=== PATIENT | male | born 1960 | race Caucasian/White ===

== ENCOUNTER 2016-06-06 09:37 | Emergency (ER) | payer MEDICARE, OTHER ==
[~2016-06-06 09:37] MED LIST: /ATOR40TA OR; ASPI325T OR; BYSTOLIC PO; COENCAP PO; SAPHRIS PO; TRAZ50TA OR; [UNRECOGNIZED DRUG - OTHER] PO
--- NOTE | 2016-06-06 11:01 | REP ---
CT Head without contrast HISTORY: Visual loss COMPARISON: None There is no intraparenchymal hemorrhage, acute infarct, mass or midline shift. The ventricular system is normal in appearance. There is no extra cerebral collection. There is no fracture. The visualized sinuses are clear. IMPRESSION: There is no intracranial lesion. Signed by Luis Lange MD 06/06/2016 10:52 A
[2016-06-06 11:21] LABS: BASO % 0.3 % (0.0-1.0); EOS # 0.1 K/mm3 (0.0-0.50); EOS % 1.2 % (0.0-3.0); LARGE UNSTAINED CELL # 0.2 K/mm3 (0.0-0.4); LARGE UNSTAINED CELL % 2.3 % (0.0-4.0); LYMPH # 1.3 K/mm3 (1.5-4.5); LYMPH % 15.4 % (24.0-44.0); MEAN CORPUSCULAR HEMOGLOBIN 27.2 pg (27.0-33.0); MEAN CORPUSCULAR HGB CONC 32.7 g/dl (32.0-36.5); MEAN CORPUSCULAR VOLUME 83.1 fl (80.0-96.0); MONO # 0.5 K/mm3 (0.0-0.8); MONO % 5.9 % (0.0-5.0); NEUTROPHILS # 6.4 K/mm3 (1.8-7.7); PLATELET COUNT, AUTOMATED 303 k/mm3 (150-450); RED CELL DISTRIBUTION WIDTH 13.7 % (11.5-14.5); WHITE BLOOD COUNT 8.5 K/mm3 (4.0-10.0)
[2016-06-06 11:27] LABS: INR 1.01
[2016-06-06 11:41] LABS: ANION GAP 7 MEQ/L (8-16); BLOOD UREA NITROGEN 11 MG/DL (7-18); CALCIUM LEVEL 8.9 MG/DL (8.5-10.1); CARBON DIOXIDE LEVEL 32 MEQ/L (21-32); CHLORIDE LEVEL 106 MEQ/L (98-107); CREATININE FOR GFR 0.97 MG/DL (0.70-1.30); GLOMERULAR FILTRATION RATE > 60.0 (>56); GLUCOSE, FASTING 103 MG/DL (70-105); SODIUM LEVEL 145 MEQ/L (136-145)
--- NOTE | 2016-06-06 12:55 | EDDOCDS ---
Nurse's Notes [facility] Name: Cory oMss Age: 55 yrs Sex: Male : 1960 Arrival Date: 06/06/2016 Time: 09:37 Bed 15 Private MD: Francheska Sandy E Diagnosis: Transient visual loss-not visual loss but visual change - transient blurring of vision Presentation: 06/06 09:44 Presenting complaint: EMS states: while eating breakfast had an aura and visual hs1 changes. FS 129. Pt concerned with signs of stroke. Pt has no history of trauma and is on Eliquis. Pt walked to ambulance and EMS states that he has no neuro deficits. The last date and time the patient was known to be well was was at 07:00 on June 06, 2016. No acute neurological deficit is noted. The patients blood glucose was checked before arriving to the hospital and was found to be normal. Adult Sepsis Screening: The patient does not have new or worsening altered mentation. Patient's respiratory rate is less than 22. Systolic blood pressure is greater than 100. Patient has a qSOFA score of 0- Negative Sepsis Screen. Suicide/Homicide risk assessment- the patient denies having any suicidal and/or homicidal ideations and does not present with any other emotional, behavioral or mental health complaints. 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 Transition of care: patient was not received from another setting of care. 09:44 Acuity: SELENA Level 3 hs1 09:44 Method Of Arrival: Ambulance hs1 Triage Assessment: 09:48 The onset of the patients symptoms was less than three hours ago. General: Appears in hs1 no apparent distress, comfortable, Behavior is cooperative, Pt requests to use restroom and was handed urinal. Pt refused and got up off stretcher and walked to restroom carrying urinal. . Pain: Denies pain. HIV screening NA for this visit Offered previously. Neurological: Level of Consciousness is awake, alert, obeys commands, Reports no additional symptoms. Historical: - Allergies: IV Dye; PENICILLINS; - Home Meds: 1. Bystolic 5 mg oral tab 1 tab once daily 2. eplerenone 25 mg oral tab 1 tab once daily 3. potassium chloride 10 mEq Oral cpER 1 cap once daily 4. CoQ-10 100 mg oral cap 200 mg daily 5. Eliquis 5 mg oral tab 1 tab 2 times per day 6. metformin 1,000 mg Oral tab 1 tab 2 times per day 7. aspirin 325 mg Oral tab 1 tab as needed 8. gabapentin 300 mg Oral tab 600 mg nightly 9. lamotrigine 25 mg Oral tab 1 tabs 2 times per day 10. trazodone 100 mg Oral tab 2 tabs nightly 11. topiramate 50 mg oral cp24 1 cap twice a day 12. prazosin 1 mg Oral cap nightly - PMHx: Atrial Fib; Chronic Low Back Pain; Diabetes - NIDDM: controlled; Hypertension; - PSHx: right lobectomy; Appendectomy; - Social history: Smoking status: Patient states former smoker of tobacco. No barriers to communication noted, The patient speaks fluent Thai, Speaks appropriately for age. - Family history: Not pertinent. - : The pt / caregiver states he / she is on anticoagulants: Eliquis Home medication list is obtained from the patient. - Exposure Risk Screening:: None identified. Screenin:02 Screening information is obtained from the patient. Fall risk: No risks identified. hs1 Assistance ADL's: requires no assistance with activities of daily living. Abuse/DV Screen: The patient / caregiver reports he/she is: not in a situation that causes fear, pain or injury. Nutritional screening: No deficits noted. Advance Directives: Currently, there is no health care proxy. There is no active DNR order. home support is adequate. Assessment: 10:30 General: Appears in no apparent distress, comfortable, Behavior is appropriate for age, hs1 cooperative. Pain: Denies pain. Neurological: No deficits noted. Cardiovascular: Rhythm is regular Chest pain is denied. Respiratory: Airway is patent Respiratory effort is even, unlabored. Derm: Skin is pink, warm & dry. normal. 11:15 Reassessment: Patient appears in no apparent distress at this time. Patient denies pain hs1 at this time. General: Appears in no apparent distress, comfortable, Behavior is appropriate for age, cooperative. Pain: Denies pain. 12:25 General: Appears in no apparent distress, comfortable, Behavior is appropriate for age, hs1 cooperative. Pain: Denies pain. Neurological: Level of Consciousness is awake, alert, obeys commands, Oriented to person, place, time, Medicine Teacher are equal bilaterally Moves all extremities. Gait is steady, Speech is normal, Pupils are PERRLA. Cardiovascular: Rhythm is sinus rhythm No ectopy. Respiratory: Airway is patent Respiratory effort is even, unlabored. GI: No deficits noted. Derm: Skin is pink, warm & dry. normal. 12:52 Reassessment: Patient appears in no apparent distress at this time. Patient denies pain hs1 at this time. Patient states symptoms have improved. Pt agreeable to discharge. . Vital Signs: 09:56 BP 156 / 72; Pulse 81; Resp 20; Temp 97.6(O); Pulse Ox 98% on R/A; Weight 138.8 kg; jml1 Height 6 ft. 0 in. (182.88 cm); Pain 0/10; 12:53 BP 137 / 62; Pulse 71; Resp 18; Temp 98.0; Pulse Ox 96% ; Pain 0/10; hs1 09:56 Body Mass Index 41.50 (138.80 kg, 182.88 cm) [facility] Vitals: 10:03 Glucose Measurement D-stick done by EMS. Log In Time N/A - ambulance arrival. hs1 ED Course: 09:38 Patient visited by Cecille Woods, Chief Vendor Quality. lbd 09:38 Patient moved to Waiting lbd 09:39 Francheska Sandy is Private Physician. lbd 09:39 Patient moved to 15 lbd 09:47 Triage Initiated hs1 09:56 Patient visited by Arsen Tucker. jml1 10:03 The patient / caregiver is instructed regarding the plan of care and ED course. hs1 10:03 Maintain field IV. Gauge & site: 18 gauge in left AC. hs1 10:14 Regina Blake MD is Attending Physician. sd1 10:15 Patient visited by Regina Blake MD. sd1 10:51 Patient visited by Arsen Tucker. jml1 10:51 EKG done. (by ED staff). Reviewed by Regina Blake MD. jml1 11:10 CT Head Without Contrast Returned. EDMS 11:14 MED Profile Sent. hs1 11:14 CBC with Diff Sent. hs1 11:14 PT/INR Sent. hs1 11:27 Patient visited by Mayra Fuller RN. hs1 11:53 Patient visited by Johana Hernandes PCA. jlf 12:25 Patient visited by Johana Hernandes PCA. [facility] 12:32 Francheska Sandy is Referral Physician. sd1 12:52 Discontinued IV lock intact, bleeding controlled, pressure dressing applied, No hs1 redness/swelling at site. No procedures done that require assistance. Order Results: Lab Order: PT/INR; SPEC'M 06/06/16 11:13 Test: PROTHROMBIN TIME; Value: 13.4; Range: 12.3-14.5; Units: SECONDS; Status: F Test: INR; Value: 1.01; Status: F Test Note: ; THERAPUTIC HUMAN INR VALUES INDICATIONS NORMAL RANGES PROPHYLAXIS/TREATMENT OF: VENOUS THROMBOSIS 2.0-3.0 PULMONARY EMBOLISM 2.0-3.0 PREVENTION OF SYSTEMIC EMBOLISM FROM: TISSUE HEART VALVES 2.0-3.0 ACUTE MYOCARDIAL INFARCTION 2.0-3.0 VALVULAR HEART DISEASE 2.0-3.0 ATRIAL FIBRILLATION 2.0-3.0 MECHANICAL VALVES(HIGH RISK) 2.5-3.5 RECURRENT MYOCARDIAL INFARCTION 2.5-3.5 Lab Order: CBC with Diff; SPEC'M 06/06/16 11:13 Test: WHITE BLOOD COUNT; Value: 8.5; Range: 4.0-10.0; Units: K/mm3; Status: F Test: RED BLOOD COUNT; Value: 4.91; Range: 4.30-6.10; Units: M/mm3; Status: F Test: HEMOGLOBIN; Value: 13.3; Range: 14.0-18.0; Abnormal: Below low normal; Units: g/dl; Status: F Test: HEMATOCRIT; Value: 40.8; Range: 42.0-52.0; Abnormal: Below low normal; Units: %; Status: F Test: MEAN CORPUSCULAR VOLUME; Value: 83.1; Range: 80.0-96.0; Units: fl; Status: F Test: MEAN CORPUSCULAR HEMOGLOBIN; Value: 27.2; Range: 27.0-33.0; Units: pg; Status: F Test: MEAN CORPUSCULAR HGB CONC; Value: 32.7; Range: 32.0-36.5; Units: g/dl; Status: F Test: RED CELL DISTRIBUTION WIDTH; Value: 13.7; Range: 11.5-14.5; Units: %; Status: F Test: PLATELET COUNT, AUTOMATED; Value: 303; Range: 150-450; Units: k/mm3; Status: F Test: NEUTROPHILS %; Value: 75.0; Range: 36.0-66.0; Abnormal: Above high normal; Units: %; Status: F Test: LYMPH %; Value: 15.4; Range: 24.0-44.0; Abnormal: Below low normal; Units: %; Status: F Test: MONO %; Value: 5.9; Range: 0.0-5.0; Abnormal: Above high normal; Units: %; Status: F Test: EOS %; Value: 1.2; Range: 0.0-3.0; Units: %; Status: F Test: BASO %; Value: 0.3; Range: 0.0-1.0; Units: %; Status: F Test: LARGE UNSTAINED CELL %; Value: 2.3; Range: 0.0-4.0; Units: %; Status: F Test: NEUTROPHILS #; Value: 6.4; Range: 1.8-7.7; Units: K/mm3; Status: F Test: LYMPH #; Value: 1.3; Range: 1.5-4.5; Abnormal: Below low normal; Units: K/mm3; Status: F Test: MONO #; Value: 0.5; Range: 0.0-0.8; Units: K/mm3; Status: F Test: EOS #; Value: 0.1; Range: 0.0-0.50; Units: K/mm3; Status: F Test: BASO #; Value: 0.0; Range: 0.0-0.2; Units: K/mm3; Status: F Test: LARGE UNSTAINED CELL #; Value: 0.2; Range: 0.0-0.4; Units: K/mm3; Status: F Lab Order: MED Profile; SPEC'M 06/06/16 11:13 Test: GLUCOSE, FASTING; Value: 103; Range: 70-105; Units: MG/DL; Status: F Test: BLOOD UREA NITROGEN; Value: 11; Range: 7-18; Units: MG/DL; Status: F Test: CREATININE FOR GFR; Value: 0.97; Range: 0.70-1.30; Units: MG/DL; Status: F Test: GLOMERULAR FILTRATION RATE; Value: > 60.0; Range: >56; Status: F Test: SODIUM LEVEL; Value: 145; Range: 136-145; Units: MEQ/L; Status: F Test: POTASSIUM SERUM; Value: 4.0; Range: 3.5-5.1; Units: MEQ/L; Status: F Test: CHLORIDE LEVEL; Value: 106; Range: 98-107; Units: MEQ/L; Status: F Test: CARBON DIOXIDE LEVEL; Value: 32; Range: 21-32; Units: MEQ/L; Status: F Test: ANION GAP; Value: 7; Range: 8-16; Abnormal: Below low normal; Units: MEQ/L; Status: F Test: CALCIUM LEVEL; Value: 8.9; Range: 8.5-10.1; Units: MG/DL; Status: F Test Note: ; Units are mL/min/1.73 m2 Chronic Kidney Disease Staging per NKF: Stage I & II GFR >=60 Normal to Mildly Decreased Stage III GFR 30-59 Moderately Decreased Stage IV GFR 15-29 Severely Decreased Stage V GFR <15 Very Little GFR Left ESRD GFR <15 on FILLER SPREADER Radiology Order: CT Head Without Contrast Test: CT Head Without Contrast REASON FOR EXAMINATION: vision loss; CT Head without contrast; ; HISTORY: Visual loss; ; COMPARISON: None; ; There is no intraparenchymal hemorrhage, acute infarct, mass or midline shift.; The ventricular system is normal in appearance. There is no extra cerebral; collection. There is no fracture. The visualized sinuses are clear.; ; IMPRESSION: There is no intracranial lesion.; ; ; ; ; Signed by; Luis Lange MD 06/06/2016 10:52 A; Outcome: 12:26 CT Study completed. hs1 12:34 Discharge ordered by Provider. sd1 12:53 Discharge Assessment: Patient awake, alert and oriented x 3. No cognitive and/or hs1 functional deficits noted. Patient verbalized understanding of disposition instructions. patient administered narcotics - no. The following High Risk Discharge criteria are identified: None. Discharged to home ambulatory. Condition: stable. Discharge instructions given to patient, Instructed on discharge instructions, follow up and referral plans. medication usage, Demonstrated understanding of instructions, medications, Pt was receptive of discharge instructions/ teaching. Property sent home with patient. 12:54 Patient left the ED. hs1 Signatures: Dispatcher [employer] EDMS Regina Blake MD MD sd1 Cecille Woods, Chief Vendor Quality Unit lbd Mayra Fuller RN RN hs1 Arsen Tucker jml1 Johana Hernandes PCA RESIDENT BUYER [facility] MTDD
--- NOTE | 2016-06-06 12:55 | EDDOCDS ---
Physician Documentation [facility] Name: Cory Moss Age: 55 yrs Sex: Male : 1960 Arrival Date: 06/06/2016 Time: 09:37 Bed 15 Private MD: Francheska Sandy E Disposition: 06/06/16 12:34 Discharged to Home/Self Care. Impression: Transient visual loss - not visual loss but visual change - transient blurring of vision. - Condition is Stable. - Discharge Instructions: Eye - Blurred Vision. - Medication Reconciliation, Local Pharmacy Hours form. - Follow up: Francheska Sandy; When: 1 - 2 days. - Problem is new. - Symptoms are resolved. Historical: - Allergies: IV Dye; PENICILLINS; - Home Meds: 1. Bystolic 5 mg oral tab 1 tab once daily 2. eplerenone 25 mg oral tab 1 tab once daily 3. potassium chloride 10 mEq Oral cpER 1 cap once daily 4. CoQ-10 100 mg oral cap 200 mg daily 5. Eliquis 5 mg oral tab 1 tab 2 times per day 6. metformin 1,000 mg Oral tab 1 tab 2 times per day 7. aspirin 325 mg Oral tab 1 tab as needed 8. gabapentin 300 mg Oral tab 600 mg nightly 9. lamotrigine 25 mg Oral tab 1 tabs 2 times per day 10. trazodone 100 mg Oral tab 2 tabs nightly 11. topiramate 50 mg oral cp24 1 cap twice a day 12. prazosin 1 mg Oral cap nightly - PMHx: Atrial Fib; Chronic Low Back Pain; Diabetes - NIDDM: controlled; Hypertension; - PSHx: right lobectomy; Appendectomy; - Social history: Smoking status: Patient states former smoker of tobacco. No barriers to communication noted, The patient speaks fluent Romanian, Speaks appropriately for age. - Family history: Not pertinent. - : The pt / caregiver states he / she is on anticoagulants: Eliquis Home medication list is obtained from the patient. - Exposure Risk Screening:: None identified. Vital Signs: 06/06 09:56 BP 156 / 72; Pulse 81; Resp 20; Temp 97.6(O); Pulse Ox 98% on R/A; Weight 138.8 kg / jml1 306 lbs; Height 6 ft. 0 in. (182.88 cm); Pain 0/10; 12:53 BP 137 / 62; Pulse 71; Resp 18; Temp 98.0; Pulse Ox 96% ; Pain 0/10; hs1 09:56 Body Mass Index 41.50 (138.80 kg, 182.88 cm) jml1 MDM: 10:25 IV Saline Lock ordered. sd1 10:25 CT Head Without Contrast Ordered. EDMS 10:25 PT/INR Ordered. EDMS 10:25 CBC with Diff Ordered. EDMS 10:25 MED Profile Ordered. EDMS 10:26 ECG WITH READING ER PHYS+CARDIAG ordered. EDMS 11:47 MRI Screening Tool - Place on chart, inform RN ordered. sd1 11:47 -MRA-Brain without contrast Ordered. EDMS 11:48 CBC with Diff Reviewed. sd1 11:48 MED Profile Reviewed. sd1 11:48 PT/INR Reviewed. sd1 11:48 CT Head Without Contrast Reviewed. sd1 11:48 -MRI-Brain without Ordered. EDMS 12:01 MRI Screening Tool - Place on chart, inform RN complete. lbd 12:46 Financial registration complete. mm15 Signatures: Dispatcher [employer] EDMS Regina Blake MD MD sd1 Cecille Woods, Candle Molder Unit lbd Mayra Fuller, RN RN hs1 Sylvia Deras mm15 MTDD
--- NOTE | 2016-06-06 20:00 | ECGEPIP ---
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
--- NOTE | 2016-06-08 13:55 | EDDOCDS ---
Physician Documentation [facility] Name: Cory Moss Age: 55 yrs Sex: Male : 1960 Arrival Date: 06/06/2016 Time: 09:37 Bed 15 Private MD: Francheska Sandy E Disposition: 06/06/16 12:34 Discharged to Home/Self Care. Impression: Transient visual loss - not visual loss but visual change - transient blurring of vision. - Condition is Stable. - Discharge Instructions: Eye - Blurred Vision. - Medication Reconciliation, Local Pharmacy Hours form. - Follow up: Francheska Sandy; When: 1 - 2 days. - Problem is new. - Symptoms are resolved. Historical: - Allergies: IV Dye; PENICILLINS; - Home Meds: 1. Bystolic 5 mg oral tab 1 tab once daily 2. eplerenone 25 mg oral tab 1 tab once daily 3. potassium chloride 10 mEq Oral cpER 1 cap once daily 4. CoQ-10 100 mg oral cap 200 mg daily 5. Eliquis 5 mg oral tab 1 tab 2 times per day 6. metformin 1,000 mg Oral tab 1 tab 2 times per day 7. aspirin 325 mg Oral tab 1 tab as needed 8. gabapentin 300 mg Oral tab 600 mg nightly 9. lamotrigine 25 mg Oral tab 1 tabs 2 times per day 10. trazodone 100 mg Oral tab 2 tabs nightly 11. topiramate 50 mg oral cp24 1 cap twice a day 12. prazosin 1 mg Oral cap nightly - PMHx: Atrial Fib; Chronic Low Back Pain; Diabetes - NIDDM: controlled; Hypertension; - PSHx: right lobectomy; Appendectomy; - Social history: Smoking status: Patient states former smoker of tobacco. No barriers to communication noted, The patient speaks fluent Yi, Speaks appropriately for age. - Family history: Not pertinent. - : The pt / caregiver states he / she is on anticoagulants: Eliquis Home medication list is obtained from the patient. - Exposure Risk Screening:: None identified. Vital Signs: 06/06 09:56 BP 156 / 72; Pulse 81; Resp 20; Temp 97.6(O); Pulse Ox 98% on R/A; Weight 138.8 kg / jml1 306 lbs; Height 6 ft. 0 in. (182.88 cm); Pain 0/10; 12:53 BP 137 / 62; Pulse 71; Resp 18; Temp 98.0; Pulse Ox 96% ; Pain 0/10; hs1 09:56 Body Mass Index 41.50 (138.80 kg, 182.88 cm) jml1 MDM: 10:25 IV Saline Lock ordered. sd1 10:25 CT Head Without Contrast Ordered. EDMS 10:25 PT/INR Ordered. EDMS 10:25 CBC with Diff Ordered. EDMS 10:25 MED Profile Ordered. EDMS 10:26 ECG WITH READING ER PHYS+CARDIAG ordered. EDMS 11:47 MRI Screening Tool - Place on chart, inform RN ordered. sd1 11:47 -MRA-Brain without contrast Ordered. EDMS 11:48 CBC with Diff Reviewed. sd1 11:48 MED Profile Reviewed. sd1 11:48 PT/INR Reviewed. sd1 11:48 CT Head Without Contrast Reviewed. sd1 11:48 -MRI-Brain without Ordered. EDMS 12:01 MRI Screening Tool - Place on chart, inform RN complete. lbd 12:46 Financial registration complete. mm15 12:55 [facility] Payment Agreement was scanned into [employer] and attached to record. mm15 15:02 T-Sheet-- Draft Copy was scanned into [employer] and attached to record. gb 15:03 ECG/EKG was scanned into [employer] and attached to record. gb Signatures: Dispatcher [employer] Regina Nguyen MD MD sd1 Cecille Woods, Engraver Tire Mold Unit lbd Theresa Gomez, Reg Reg gb Mayra Fuller RN RN hs1 Sylvia Deras mm15 The chart was reviewed and I authenticate all verbal orders and agree with the evaluation and treatment provided.Attachments: 12:55 [facility] Payment Agreement mm15 15:02 T-Sheet-- Draft Copy gb 15:03 ECG/EKG gb Chart Complete MTDD
--- NOTE | 2016-06-08 13:55 | EDDOCDS ---
Physician Documentation [facility] Name: Cory Moss Age: 55 yrs Sex: Male : 1960 Arrival Date: 06/06/2016 Time: 09:37 Bed 15 Private MD: Francheska Sandy E Disposition: 06/06/16 12:34 Discharged to Home/Self Care. Impression: Transient visual loss - not visual loss but visual change - transient blurring of vision. - Condition is Stable. - Discharge Instructions: Eye - Blurred Vision. - Medication Reconciliation, Local Pharmacy Hours form. - Follow up: Francheska Sandy; When: 1 - 2 days. - Problem is new. - Symptoms are resolved. Historical: - Allergies: IV Dye; PENICILLINS; - Home Meds: 1. Bystolic 5 mg oral tab 1 tab once daily 2. eplerenone 25 mg oral tab 1 tab once daily 3. potassium chloride 10 mEq Oral cpER 1 cap once daily 4. CoQ-10 100 mg oral cap 200 mg daily 5. Eliquis 5 mg oral tab 1 tab 2 times per day 6. metformin 1,000 mg Oral tab 1 tab 2 times per day 7. aspirin 325 mg Oral tab 1 tab as needed 8. gabapentin 300 mg Oral tab 600 mg nightly 9. lamotrigine 25 mg Oral tab 1 tabs 2 times per day 10. trazodone 100 mg Oral tab 2 tabs nightly 11. topiramate 50 mg oral cp24 1 cap twice a day 12. prazosin 1 mg Oral cap nightly - PMHx: Atrial Fib; Chronic Low Back Pain; Diabetes - NIDDM: controlled; Hypertension; - PSHx: right lobectomy; Appendectomy; - Social history: Smoking status: Patient states former smoker of tobacco. No barriers to communication noted, The patient speaks fluent Divehi, Speaks appropriately for age. - Family history: Not pertinent. - : The pt / caregiver states he / she is on anticoagulants: Eliquis Home medication list is obtained from the patient. - Exposure Risk Screening:: None identified. Vital Signs: 06/06 09:56 BP 156 / 72; Pulse 81; Resp 20; Temp 97.6(O); Pulse Ox 98% on R/A; Weight 138.8 kg / jml1 306 lbs; Height 6 ft. 0 in. (182.88 cm); Pain 0/10; 12:53 BP 137 / 62; Pulse 71; Resp 18; Temp 98.0; Pulse Ox 96% ; Pain 0/10; hs1 09:56 Body Mass Index 41.50 (138.80 kg, 182.88 cm) jml1 MDM: 10:25 IV Saline Lock ordered. sd1 10:25 CT Head Without Contrast Ordered. EDMS 10:25 PT/INR Ordered. EDMS 10:25 CBC with Diff Ordered. EDMS 10:25 MED Profile Ordered. EDMS 10:26 ECG WITH READING ER PHYS+CARDIAG ordered. EDMS 11:47 MRI Screening Tool - Place on chart, inform RN ordered. sd1 11:47 -MRA-Brain without contrast Ordered. EDMS 11:48 CBC with Diff Reviewed. sd1 11:48 MED Profile Reviewed. sd1 11:48 PT/INR Reviewed. sd1 11:48 CT Head Without Contrast Reviewed. sd1 11:48 -MRI-Brain without Ordered. EDMS 12:01 MRI Screening Tool - Place on chart, inform RN complete. lbd 12:46 Financial registration complete. mm15 12:55 [facility] Payment Agreement was scanned into [employer] and attached to record. mm15 15:02 T-Sheet-- Draft Copy was scanned into [employer] and attached to record. gb 15:03 ECG/EKG was scanned into [employer] and attached to record. gb Signatures: Dispatcher [employer] Regina Nguyen MD MD sd1 Cecille Woods, Pulmonary Physical Therapist Unit lbd Theresa Gomez, Reg Reg gb Mayra Fuller RN RN hs1 Sylvia Deras mm15 The chart was reviewed and I authenticate all verbal orders and agree with the evaluation and treatment provided.Attachments: 12:55 [facility] Payment Agreement mm15 15:02 T-Sheet-- Draft Copy gb 15:03 ECG/EKG gb Chart Complete MTDD
--- NOTE | 2016-06-08 13:55 | EDDOCDS ---
Nurse's Notes [facility] Name: Cory Moss Age: 55 yrs Sex: Male : 1960 Arrival Date: 06/06/2016 Time: 09:37 Bed 15 Private MD: Francheska Sandy E Diagnosis: Transient visual loss-not visual loss but visual change - transient blurring of vision Presentation: 06/06 09:44 Presenting complaint: EMS states: while eating breakfast had an aura and visual hs1 changes. FS 129. Pt concerned with signs of stroke. Pt has no history of trauma and is on Eliquis. Pt walked to ambulance and EMS states that he has no neuro deficits. The last date and time the patient was known to be well was was at 07:00 on June 06, 2016. No acute neurological deficit is noted. The patients blood glucose was checked before arriving to the hospital and was found to be normal. Adult Sepsis Screening: The patient does not have new or worsening altered mentation. Patient's respiratory rate is less than 22. Systolic blood pressure is greater than 100. Patient has a qSOFA score of 0- Negative Sepsis Screen. Suicide/Homicide risk assessment- the patient denies having any suicidal and/or homicidal ideations and does not present with any other emotional, behavioral or mental health complaints. Status: Patient is not a guest service aide or dependent. Transition of care: patient was not received from another setting of care. 09:44 Acuity: SELENA Level 3 hs1 09:44 Method Of Arrival: Ambulance hs1 Triage Assessment: 09:48 The onset of the patients symptoms was less than three hours ago. General: Appears in hs1 no apparent distress, comfortable, Behavior is cooperative, Pt requests to use restroom and was handed urinal. Pt refused and got up off stretcher and walked to restroom carrying urinal. . Pain: Denies pain. HIV screening NA for this visit Offered previously. Neurological: Level of Consciousness is awake, alert, obeys commands, Reports no additional symptoms. Historical: - Allergies: IV Dye; PENICILLINS; - Home Meds: 1. Bystolic 5 mg oral tab 1 tab once daily 2. eplerenone 25 mg oral tab 1 tab once daily 3. potassium chloride 10 mEq Oral cpER 1 cap once daily 4. CoQ-10 100 mg oral cap 200 mg daily 5. Eliquis 5 mg oral tab 1 tab 2 times per day 6. metformin 1,000 mg Oral tab 1 tab 2 times per day 7. aspirin 325 mg Oral tab 1 tab as needed 8. gabapentin 300 mg Oral tab 600 mg nightly 9. lamotrigine 25 mg Oral tab 1 tabs 2 times per day 10. trazodone 100 mg Oral tab 2 tabs nightly 11. topiramate 50 mg oral cp24 1 cap twice a day 12. prazosin 1 mg Oral cap nightly - PMHx: Atrial Fib; Chronic Low Back Pain; Diabetes - NIDDM: controlled; Hypertension; - PSHx: right lobectomy; Appendectomy; - Social history: Smoking status: Patient states former smoker of tobacco. No barriers to communication noted, The patient speaks fluent [place] Islander, Speaks appropriately for age. - Family history: Not pertinent. - : The pt / caregiver states he / she is on anticoagulants: Eliquis Home medication list is obtained from the patient. - Exposure Risk Screening:: None identified. Screenin:02 Screening information is obtained from the patient. Fall risk: No risks identified. hs1 Assistance ADL's: requires no assistance with activities of daily living. Abuse/DV Screen: The patient / caregiver reports he/she is: not in a situation that causes fear, pain or injury. Nutritional screening: No deficits noted. Advance Directives: Currently, there is no health care proxy. There is no active DNR order. home support is adequate. Assessment: 10:30 General: Appears in no apparent distress, comfortable, Behavior is appropriate for age, hs1 cooperative. Pain: Denies pain. Neurological: No deficits noted. Cardiovascular: Rhythm is regular Chest pain is denied. Respiratory: Airway is patent Respiratory effort is even, unlabored. Derm: Skin is pink, warm & dry. normal. 11:15 Reassessment: Patient appears in no apparent distress at this time. Patient denies pain hs1 at this time. General: Appears in no apparent distress, comfortable, Behavior is appropriate for age, cooperative. Pain: Denies pain. 12:25 General: Appears in no apparent distress, comfortable, Behavior is appropriate for age, hs1 cooperative. Pain: Denies pain. Neurological: Level of Consciousness is awake, alert, obeys commands, Oriented to person, place, time, Pc Maintenance Technician are equal bilaterally Moves all extremities. Gait is steady, Speech is normal, Pupils are PERRLA. Cardiovascular: Rhythm is sinus rhythm No ectopy. Respiratory: Airway is patent Respiratory effort is even, unlabored. GI: No deficits noted. Derm: Skin is pink, warm & dry. normal. 12:52 Reassessment: Patient appears in no apparent distress at this time. Patient denies pain hs1 at this time. Patient states symptoms have improved. Pt agreeable to discharge. . Vital Signs: 09:56 BP 156 / 72; Pulse 81; Resp 20; Temp 97.6(O); Pulse Ox 98% on R/A; Weight 138.8 kg; jml1 Height 6 ft. 0 in. (182.88 cm); Pain 0/10; 12:53 BP 137 / 62; Pulse 71; Resp 18; Temp 98.0; Pulse Ox 96% ; Pain 0/10; hs1 09:56 Body Mass Index 41.50 (138.80 kg, 182.88 cm) [facility] Vitals: 10:03 Glucose Measurement D-stick done by EMS. Log In Time N/A - ambulance arrival. hs1 ED Course: 09:38 Patient visited by Cecille Woods, Functional Support Analyst. lbd 09:38 Patient moved to Waiting lbd 09:39 Francheska Sandy is Private Physician. lbd 09:39 Patient moved to 15 lbd 09:47 Triage Initiated hs1 09:56 Patient visited by Arsen Tucker. jml1 10:03 The patient / caregiver is instructed regarding the plan of care and ED course. hs1 10:03 Maintain field IV. Gauge & site: 18 gauge in left AC. hs1 10:14 Regina Blake MD is Attending Physician. sd1 10:15 Patient visited by Regina Blake MD. sd1 10:51 Patient visited by Arsen Tucker. jml1 10:51 EKG done. (by ED staff). Reviewed by Regina Blake MD. jml1 11:10 CT Head Without Contrast Returned. EDMS 11:14 MED Profile Sent. hs1 11:14 CBC with Diff Sent. hs1 11:14 PT/INR Sent. hs1 11:27 Patient visited by Mayra Fuller RN. hs1 11:53 Patient visited by Johana Hernandes PCA. jlf 12:25 Patient visited by Johana Hernandes PCA. jlf 12:32 Francheska Sandy is Referral Physician. sd1 12:52 Discontinued IV lock intact, bleeding controlled, pressure dressing applied, No hs1 redness/swelling at site. No procedures done that require assistance. 12:55 [facility] Payment Agreement was scanned into TopCoder and attached to record. mm15 14:27 Patient name changed from Cory\S\A\S\Isa\S\ to Cory\S\Nikolas\S\Isa. EDMS 15:02 T-Sheet-- Draft Copy was scanned into TopCoder and attached to record. gb 15:03 ECG/EKG was scanned into MED[employer] and attached to record. gb 20:05 EKG-ADULT Returned. EDMS Order Results: Lab Order: PT/INR; SPEC'M 06/06/16 11:13 Test: PROTHROMBIN TIME; Value: 13.4; Range: 12.3-14.5; Units: SECONDS; Status: F Test: INR; Value: 1.01; Status: F Test Note: ; THERAPUTIC HUMAN INR VALUES INDICATIONS NORMAL RANGES PROPHYLAXIS/TREATMENT OF: VENOUS THROMBOSIS 2.0-3.0 PULMONARY EMBOLISM 2.0-3.0 PREVENTION OF SYSTEMIC EMBOLISM FROM: TISSUE HEART VALVES 2.0-3.0 ACUTE MYOCARDIAL INFARCTION 2.0-3.0 VALVULAR HEART DISEASE 2.0-3.0 ATRIAL FIBRILLATION 2.0-3.0 MECHANICAL VALVES(HIGH RISK) 2.5-3.5 RECURRENT MYOCARDIAL INFARCTION 2.5-3.5 Lab Order: CBC with Diff; SPEC'M 06/06/16 11:13 Test: WHITE BLOOD COUNT; Value: 8.5; Range: 4.0-10.0; Units: K/mm3; Status: F Test: RED BLOOD COUNT; Value: 4.91; Range: 4.30-6.10; Units: M/mm3; Status: F Test: HEMOGLOBIN; Value: 13.3; Range: 14.0-18.0; Abnormal: Below low normal; Units: g/dl; Status: F Test: HEMATOCRIT; Value: 40.8; Range: 42.0-52.0; Abnormal: Below low normal; Units: %; Status: F Test: MEAN CORPUSCULAR VOLUME; Value: 83.1; Range: 80.0-96.0; Units: fl; Status: F Test: MEAN CORPUSCULAR HEMOGLOBIN; Value: 27.2; Range: 27.0-33.0; Units: pg; Status: F Test: MEAN CORPUSCULAR HGB CONC; Value: 32.7; Range: 32.0-36.5; Units: g/dl; Status: F Test: RED CELL DISTRIBUTION WIDTH; Value: 13.7; Range: 11.5-14.5; Units: %; Status: F Test: PLATELET COUNT, AUTOMATED; Value: 303; Range: 150-450; Units: k/mm3; Status: F Test: NEUTROPHILS %; Value: 75.0; Range: 36.0-66.0; Abnormal: Above high normal; Units: %; Status: F Test: LYMPH %; Value: 15.4; Range: 24.0-44.0; Abnormal: Below low normal; Units: %; Status: F Test: MONO %; Value: 5.9; Range: 0.0-5.0; Abnormal: Above high normal; Units: %; Status: F Test: EOS %; Value: 1.2; Range: 0.0-3.0; Units: %; Status: F Test: BASO %; Value: 0.3; Range: 0.0-1.0; Units: %; Status: F Test: LARGE UNSTAINED CELL %; Value: 2.3; Range: 0.0-4.0; Units: %; Status: F Test: NEUTROPHILS #; Value: 6.4; Range: 1.8-7.7; Units: K/mm3; Status: F Test: LYMPH #; Value: 1.3; Range: 1.5-4.5; Abnormal: Below low normal; Units: K/mm3; Status: F Test: MONO #; Value: 0.5; Range: 0.0-0.8; Units: K/mm3; Status: F Test: EOS #; Value: 0.1; Range: 0.0-0.50; Units: K/mm3; Status: F Test: BASO #; Value: 0.0; Range: 0.0-0.2; Units: K/mm3; Status: F Test: LARGE UNSTAINED CELL #; Value: 0.2; Range: 0.0-0.4; Units: K/mm3; Status: F Lab Order: CARMELO DUNCAN 06/06/16 11:13 Test: GLUCOSE, FASTING; Value: 103; Range: 70-105; Units: MG/DL; Status: F Test: BLOOD UREA NITROGEN; Value: 11; Range: 7-18; Units: MG/DL; Status: F Test: CREATININE FOR GFR; Value: 0.97; Range: 0.70-1.30; Units: MG/DL; Status: F Test: GLOMERULAR FILTRATION RATE; Value: > 60.0; Range: >56; Status: F Test: SODIUM LEVEL; Value: 145; Range: 136-145; Units: MEQ/L; Status: F Test: POTASSIUM SERUM; Value: 4.0; Range: 3.5-5.1; Units: MEQ/L; Status: F Test: CHLORIDE LEVEL; Value: 106; Range: 98-107; Units: MEQ/L; Status: F Test: CARBON DIOXIDE LEVEL; Value: 32; Range: 21-32; Units: MEQ/L; Status: F Test: ANION GAP; Value: 7; Range: 8-16; Abnormal: Below low normal; Units: MEQ/L; Status: F Test: CALCIUM LEVEL; Value: 8.9; Range: 8.5-10.1; Units: MG/DL; Status: F Test Note: ; Units are mL/min/1.73 m2 Chronic Kidney Disease Staging per NKF: Stage I & II GFR >=60 Normal to Mildly Decreased Stage III GFR 30-59 Moderately Decreased Stage IV GFR 15-29 Severely Decreased Stage V GFR <15 Very Little GFR Left ESRD GFR <15 on TRANSFER AND PUMPHOUSE OPERATOR CHIEF Radiology Order: CT Head Without Contrast Test: CT Head Without Contrast REASON FOR EXAMINATION: vision loss; CT Head without contrast; ; HISTORY: Visual loss; ; COMPARISON: None; ; There is no intraparenchymal hemorrhage, acute infarct, mass or midline shift.; The ventricular system is normal in appearance. There is no extra cerebral; collection. There is no fracture. 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 hs1 12:34 Discharge ordered by Provider. sd1 12:53 Discharge Assessment: Patient awake, alert and oriented x 3. No cognitive and/or hs1 functional deficits noted. Patient verbalized understanding of disposition instructions. patient administered narcotics - no. The following High Risk Discharge criteria are identified: None. Discharged to home ambulatory. Condition: stable. Discharge instructions given to patient, Instructed on discharge instructions, follow up and referral plans. medication usage, Demonstrated understanding of instructions, medications, Pt was receptive of discharge instructions/ teaching. Property sent home with patient. 12:54 Patient left the ED. hs1 Signatures: Dispatcher [employer] EDSC Regina Blake MD MD sd1 Cecille Woods, Functional Support Analyst Unit lbd Theresa Gomez, Bud Reg Mayra Fuller RN RN hs1 Arsen Tuckerl1 Sylvia Deras mm15 Johana Hernandes, GENI BILINGUAL MANAGER jlf Chart Complete MTDD
== END 2016-06-06 12:54 | disposition home or self-care (01) ==
LOC: M ED 09:37
DX: H53.19 Other subjective visual disturbances (principal); I10 Essential (primary) hypertension; I48.91 Unspecified atrial fibrillation; E11.9 Type 2 diabetes mellitus without complications; M54.5 Low back pain; G89.29 Other chronic pain; Z79.899 Other long term (current) drug therapy; Z79.01 Long term (current) use of anticoagulants; Z79.82 Long term (current) use of aspirin; Z88.0 Allergy status to penicillin; Z91.041 Radiographic dye allergy status

== ENCOUNTER 2016-07-18 00:01 | Emergency (ER) | payer MEDICARE ==
--- NOTE | 2016-07-18 02:33 | EDDOCDS ---
[facility] Name: Cory Moss Age: 55 yrs Sex: Male : 1960 Arrival Date: 07/18/2016 Time: 00:01 Bed I2 / M2 Private MD: Disposition: 07/18/16 02:18 Discharged to Home/Self Care. Impression: Abrasion of ear - canal LEFT. - Condition is Stable. - Discharge Instructions: Abrasion, [id number], Draining Ear, [id number]. - Medication Reconciliation, Local Pharmacy Hours form. - Follow up: Jaycob Resendiz; When: Call to arrange an appointment; Reason: Further diagnostic work-up, Recheck today's complaints, Continuance of care. - Problem is new. - Symptoms are unchanged. Historical: - Allergies: IV Dye (Anaphylaxis); PENICILLINS (Anaphylaxis); - Home Meds: 1. aspirin 325 mg Oral tab 1 tab as needed (Last dose: 07/17/2016 09:00) 2. Bystolic 5 mg oral tab 1 tab once daily (Last dose: 07/17/2016 09:00) 3. CoQ-10 100 mg oral cap 200 mg daily (Last dose: 07/17/2016 09:00) 4. Eliquis 5 mg oral tab 1 tab 2 times per day (Last dose: 07/17/2016 09:00) 5. eplerenone 25 mg oral tab 1 tab once daily (Last dose: 07/17/2016 09:00) 6. gabapentin 300 mg Oral tab 600 mg nightly (Last dose: 07/17/2016 09:00) 7. metformin 1,000 mg Oral tab 1 tab 2 times per day (Last dose: 07/17/2016 20:00) 8. potassium chloride 10 mEq Oral cpER 1 cap once daily (Last dose: 07/17/2016 09:00) 9. prazosin 1 mg Oral cap nightly (Last dose: 07/17/2016 20:00) 10. lamotrigine 25 mg Oral tab 1 tabs 2 times per day (Last dose: 07/17/2016 20:00) 11. topiramate 50 mg oral cp24 1 cap twice a day (Last dose: 07/17/2016 20:00) - PMHx: Atrial Fib; Chronic Low Back Pain; Diabetes - NIDDM: controlled; Hypertension; Bipolar disorder; - PSHx: lung resection right; Appendectomy; - Social history: Smoking status: Patient states former smoker of tobacco. No barriers to communication noted, The patient speaks fluent Tajik. - Family history: Not pertinent. - : The pt / caregiver states he / she is not on anticoagulants. Home medication list is obtained from the patient. - Exposure Risk Screening:: None identified. Vital Signs: 07/18 00:52 BP 138 / 67; Pulse 86; Resp 18; Temp 98.4; Pulse Ox 97% ; Weight 142.88 kg / 315 lbs; aida Height 6 ft. (182.88 cm); Pain 2; 02:24 BP 158 / 77; Pulse 83; Resp 18; Temp 99.1(TE); Pulse Ox 96% on R/A; Pain 08/10; rw1 00:52 Body Mass Index 42.72 (142.88 kg, 182.88 cm) jun Signatures: Olivia Kimble RN RN jan Workman, Robert, LPN LPN rw1 Bill Gaona PA PA btw ESTRELLA
--- NOTE | 2016-07-18 02:33 | EDDOCDS ---
Nurse's Notes [facility] Name: Cory Moss Age: 55 yrs Sex: Male : 1960 Arrival Date: 07/18/2016 Time: 00:01 Bed I2 / M2 Private MD: Diagnosis: Abrasion of ear-canal LEFT Presentation: 07/18 00:44 Presenting complaint:. jun 01:00 Adult Sepsis Screening: The patient does not have new or worsening altered mentation. jun Patient's respiratory rate is less than 22. Systolic blood pressure is greater than 100. Patient has a qSOFA score of 0- Negative Sepsis Screen. Suicide/Homicide risk assessment- the patient denies having any suicidal and/or homicidal ideations and does not present with any other emotional, behavioral or mental health complaints. Status: Patient is not a customer service analyst or dependent. Transition of care: patient was not received from another setting of care. 01:00 Acuity: SELENA Level 4 jun 03:00 Method Of Arrival: Walkin/Carried/Asstd jun 01:01 Presenting complaint: Patient states: he used a Q-tip before he went to bed at 6pm in jun left ear. awakened at 8pm to a "pop" left ear, then states bleeding and sticky white drainage from left ear canal. decreased hearing. Triage Assessment: 00:59 General: Appears uncomfortable, Behavior is anxious. Pain: Location: left ear canal. jun HIV screening NA for this visit Offered previously. EENT: Reports decreased hearing since 8pm. Historical: - Allergies: IV Dye (Anaphylaxis); PENICILLINS (Anaphylaxis); - Home Meds: 1. aspirin 325 mg Oral tab 1 tab as needed (Last dose: 07/17/2016 09:00) 2. Bystolic 5 mg oral tab 1 tab once daily (Last dose: 07/17/2016 09:00) 3. CoQ-10 100 mg oral cap 200 mg daily (Last dose: 07/17/2016 09:00) 4. Eliquis 5 mg oral tab 1 tab 2 times per day (Last dose: 07/17/2016 09:00) 5. eplerenone 25 mg oral tab 1 tab once daily (Last dose: 07/17/2016 09:00) 6. gabapentin 300 mg Oral tab 600 mg nightly (Last dose: 07/17/2016 09:00) 7. metformin 1,000 mg Oral tab 1 tab 2 times per day (Last dose: 07/17/2016 20:00) 8. potassium chloride 10 mEq Oral cpER 1 cap once daily (Last dose: 07/17/2016 09:00) 9. prazosin 1 mg Oral cap nightly (Last dose: 07/17/2016 20:00) 10. lamotrigine 25 mg Oral tab 1 tabs 2 times per day (Last dose: 07/17/2016 20:00) 11. topiramate 50 mg oral cp24 1 cap twice a day (Last dose: 07/17/2016 20:00) - PMHx: Atrial Fib; Chronic Low Back Pain; Diabetes - NIDDM: controlled; Hypertension; Bipolar disorder; - PSHx: lung resection right; Appendectomy; - Social history: Smoking status: Patient states former smoker of tobacco. No barriers to communication noted, The patient speaks fluent Tunisian. - Family history: Not pertinent. - : The pt / caregiver states he / she is not on anticoagulants. Home medication list is obtained from the patient. - Exposure Risk Screening:: None identified. Screenin:30 Screening information is obtained from the patient. Fall risk: No risks identified. rw1 Assistance ADL's: requires no assistance with activities of daily living. Abuse/DV Screen: The patient / caregiver reports he/she is: not in a situation that causes fear, pain or injury. Nutritional screening: No deficits noted. home support is adequate. Assessment: 02:30 Reassessment: Patient appears in no apparent distress at this time. rw1 Vital Signs: 00:52 BP 138 / 67; Pulse 86; Resp 18; Temp 98.4; Pulse Ox 97% ; Weight 142.88 kg; Height 6 jun ft. (182.88 cm); Pain 2/10; 02:24 BP 158 / 77; Pulse 83; Resp 18; Temp 99.1(TE); Pulse Ox 96% on R/A; Pain 3/10; rw1 00:52 Body Mass Index 42.72 (142.88 kg, 182.88 cm) jun Vitals: 00:52 Log In Time: July 18, 2016 at 00:01. jun ED Course: 00:05 Patient visited by Kathryn Camarena. b 00:05 Patient moved to Waiting [facility] 01:01 Triage Initiated aida 01:07 Patient moved to Pre RCE jun 02:04 Patient moved to I2 / M2 ajs 02:05 Bill Gaona PA is PHCP. btw 02:05 Nelson Ross DO is Attending Physician. btw 02:05 Patient visited by Bill Gaona PA. btw 02:17 Jaycob Resendiz is Referral Physician. btw 02:30 The patient / caregiver is instructed regarding the plan of care and ED course. rw1 02:30 No IV's were initiated during this patient's visit. No procedures done that require rw1 assistance. Order Results: There are currently no results for this order. Outcome: 02:18 Discharge ordered by Provider. btw 02:30 Discharge Assessment: Patient awake, alert and oriented x 3. No cognitive and/or rw1 functional deficits noted. Patient verbalized understanding of disposition instructions. patient administered narcotics - no. The following High Risk Discharge criteria are identified: None. Discharged to home ambulatory. Condition: stable. Discharge instructions given to patient, Instructed on discharge instructions, follow up and referral plans. Demonstrated understanding of instructions, Pt was receptive of discharge instructions/ teaching. No special radiology studies were completed. Property sent home with patient. 02:32 Patient left the ED. rw1 Signatures: Olivia Kimble RN RN Rob Card,FLAVIA KUMARN rw1 Bill Gaona PA PA btw Slate, Amanda ajs Beck, Gabriela gjb ESTRELLA
--- NOTE | 2016-07-20 03:34 | EDDOCDS ---
Physician Documentation [facility] Name: Cory Moss Age: 55 yrs Sex: Male : 1960 Arrival Date: 07/18/2016 Time: 00:01 Bed I2 / M2 Private MD: Disposition: 07/18/16 02:18 Discharged to Home/Self Care. Impression: Abrasion of ear - canal LEFT. - Condition is Stable. - Discharge Instructions: Abrasion, [id number], Draining Ear, [id number]. - Medication Reconciliation, Local Pharmacy Hours form. - Follow up: Jaycob Resendiz; When: Call to arrange an appointment; Reason: Further diagnostic work-up, Recheck today's complaints, Continuance of care. - Problem is new. - Symptoms are unchanged. Historical: - Allergies: IV Dye (Anaphylaxis); PENICILLINS (Anaphylaxis); - Home Meds: 1. aspirin 325 mg Oral tab 1 tab as needed (Last dose: 07/17/2016 09:00) 2. Bystolic 5 mg oral tab 1 tab once daily (Last dose: 07/17/2016 09:00) 3. CoQ-10 100 mg oral cap 200 mg daily (Last dose: 07/17/2016 09:00) 4. Eliquis 5 mg oral tab 1 tab 2 times per day (Last dose: 07/17/2016 09:00) 5. eplerenone 25 mg oral tab 1 tab once daily (Last dose: 07/17/2016 09:00) 6. gabapentin 300 mg Oral tab 600 mg nightly (Last dose: 07/17/2016 09:00) 7. metformin 1,000 mg Oral tab 1 tab 2 times per day (Last dose: 07/17/2016 20:00) 8. potassium chloride 10 mEq Oral cpER 1 cap once daily (Last dose: 07/17/2016 09:00) 9. prazosin 1 mg Oral cap nightly (Last dose: 07/17/2016 20:00) 10. lamotrigine 25 mg Oral tab 1 tabs 2 times per day (Last dose: 07/17/2016 20:00) 11. topiramate 50 mg oral cp24 1 cap twice a day (Last dose: 07/17/2016 20:00) - PMHx: Atrial Fib; Chronic Low Back Pain; Diabetes - NIDDM: controlled; Hypertension; Bipolar disorder; - PSHx: lung resection right; Appendectomy; - Social history: Smoking status: Patient states former smoker of tobacco. No barriers to communication noted, The patient speaks fluent Danish. - Family history: Not pertinent. - : The pt / caregiver states he / she is not on anticoagulants. Home medication list is obtained from the patient. - Exposure Risk Screening:: None identified. Vital Signs: 07/18 00:52 BP 138 / 67; Pulse 86; Resp 18; Temp 98.4; Pulse Ox 97% ; Weight 142.88 kg / 315 lbs; jun Height 6 ft. (182.88 cm); Pain 2/; 02:24 BP 158 / 77; Pulse 83; Resp 18; Temp 99.1(TE); Pulse Ox 96% on R/A; Pain 3/; rw1 00:52 Body Mass Index 42.72 (142.88 kg, 182.88 cm) jun MDM: 02:50 [facility] [place] [facility] Payment Agreement was scanned into [employer] and attached to record. pm4 10:03 T-Sheet-- Draft Copy was scanned into [employer] and attached to record. klr Signatures: Olivia Kimble RN RN Rob Card LPN MYSTERY SHOPPER rw1 Bill Gaona PA PA btw Redder, Kathie klr Montondo, Paul, Reg Reg pm4 The chart was reviewed and I authenticate all verbal orders and agree with the evaluation and treatment provided.Attachments: 02:50 [facility] [place] [facility] Payment Agreement pm4 10:03 T-Sheet-- Draft Copy klr Chart Complete MTDD
--- NOTE | 2016-07-20 03:34 | EDDOCDS ---
Physician Documentation [facility] Name: Cory Moss Age: 55 yrs Sex: Male : 1960 Arrival Date: 07/18/2016 Time: 00:01 Bed I2 / M2 Private MD: Disposition: 07/18/16 02:18 Discharged to Home/Self Care. Impression: Abrasion of ear - canal LEFT. - Condition is Stable. - Discharge Instructions: Abrasion, Cmhh-[id number]-[id number], Draining Ear, Osid-cv-Ndqt. - Medication Reconciliation, Local Pharmacy Hours form. - Follow up: Jaycob Resendiz; When: Call to arrange an appointment; Reason: Further diagnostic work-up, Recheck today's complaints, Continuance of care. - Problem is new. - Symptoms are unchanged. Historical: - Allergies: IV Dye (Anaphylaxis); PENICILLINS (Anaphylaxis); - Home Meds: 1. aspirin 325 mg Oral tab 1 tab as needed (Last dose: 07/17/2016 09:00) 2. Bystolic 5 mg oral tab 1 tab once daily (Last dose: 07/17/2016 09:00) 3. CoQ-10 100 mg oral cap 200 mg daily (Last dose: 07/17/2016 09:00) 4. Eliquis 5 mg oral tab 1 tab 2 times per day (Last dose: 07/17/2016 09:00) 5. eplerenone 25 mg oral tab 1 tab once daily (Last dose: 07/17/2016 09:00) 6. gabapentin 300 mg Oral tab 600 mg nightly (Last dose: 07/17/2016 09:00) 7. metformin 1,000 mg Oral tab 1 tab 2 times per day (Last dose: 07/17/2016 20:00) 8. potassium chloride 10 mEq Oral cpER 1 cap once daily (Last dose: 07/17/2016 09:00) 9. prazosin 1 mg Oral cap nightly (Last dose: 07/17/2016 20:00) 10. lamotrigine 25 mg Oral tab 1 tabs 2 times per day (Last dose: 07/17/2016 20:00) 11. topiramate 50 mg oral cp24 1 cap twice a day (Last dose: 07/17/2016 20:00) - PMHx: Atrial Fib; Chronic Low Back Pain; Diabetes - NIDDM: controlled; Hypertension; Bipolar disorder; - PSHx: lung resection right; Appendectomy; - Social history: Smoking status: Patient states former smoker of tobacco. No barriers to communication noted, The patient speaks fluent Cambodian. - Family history: Not pertinent. - : The pt / caregiver states he / she is not on anticoagulants. Home medication list is obtained from the patient. - Exposure Risk Screening:: None identified. Vital Signs: 07/18 00:52 BP 138 / 67; Pulse 86; Resp 18; Temp 98.4; Pulse Ox 97% ; Weight 142.88 kg / 315 lbs; jun Height 6 ft. (182.88 cm); Pain 2/; 02:24 BP 158 / 77; Pulse 83; Resp 18; Temp 99.1(TE); Pulse Ox 96% on R/A; Pain 3/; rw1 00:52 Body Mass Index 42.72 (142.88 kg, 182.88 cm) jun MDM: 02:50 [facility] Payment Agreement was scanned into [employer] and attached to record. pm4 10:03 T-Sheet-- Draft Copy was scanned into [employer] and attached to record. klr Signatures: Olivia Kimble RN RN Rob Card LPN WEED SPRAYER rw1 Bill Gaona PA PA btw Redder, Kathie klr Montondo, Paul, Reg Reg pm4 The chart was reviewed and I authenticate all verbal orders and agree with the evaluation and treatment provided.Attachments: 02:50 [facility] Payment Agreement pm4 10:03 T-Sheet-- Draft Copy klr Chart Complete MTDD
--- NOTE | 2016-07-20 03:34 | EDDOCDS ---
Nurse's Notes [facility] Name: Cory Moss Age: 55 yrs Sex: Male : 1960 Arrival Date: 07/18/2016 Time: 00:01 Bed I2 / M2 Private MD: Diagnosis: Abrasion of ear-canal LEFT Presentation: 07/18 00:44 Presenting complaint:. jun 01:00 Adult Sepsis Screening: The patient does not have new or worsening altered mentation. jun Patient's respiratory rate is less than 22. Systolic blood pressure is greater than 100. Patient has a qSOFA score of 0- Negative Sepsis Screen. Suicide/Homicide risk assessment- the patient denies having any suicidal and/or homicidal ideations and does not present with any other emotional, behavioral or mental health complaints. Status: Patient is not a visitor services coordinator or dependent. Transition of care: patient was not received from another setting of care. 01:00 Acuity: SELENA Level 4 jun 03:00 Method Of Arrival: Walkin/Carried/Asstd jun 01:01 Presenting complaint: Patient states: he used a Q-tip before he went to bed at 6pm in jun left ear. awakened at 8pm to a "pop" left ear, then states bleeding and sticky white drainage from left ear canal. decreased hearing. Triage Assessment: 00:59 General: Appears uncomfortable, Behavior is anxious. Pain: Location: left ear canal. jun HIV screening NA for this visit Offered previously. EENT: Reports decreased hearing since 8pm. Historical: - Allergies: IV Dye (Anaphylaxis); PENICILLINS (Anaphylaxis); - Home Meds: 1. aspirin 325 mg Oral tab 1 tab as needed (Last dose: 07/17/2016 09:00) 2. Bystolic 5 mg oral tab 1 tab once daily (Last dose: 07/17/2016 09:00) 3. CoQ-10 100 mg oral cap 200 mg daily (Last dose: 07/17/2016 09:00) 4. Eliquis 5 mg oral tab 1 tab 2 times per day (Last dose: 07/17/2016 09:00) 5. eplerenone 25 mg oral tab 1 tab once daily (Last dose: 07/17/2016 09:00) 6. gabapentin 300 mg Oral tab 600 mg nightly (Last dose: 07/17/2016 09:00) 7. metformin 1,000 mg Oral tab 1 tab 2 times per day (Last dose: 07/17/2016 20:00) 8. potassium chloride 10 mEq Oral cpER 1 cap once daily (Last dose: 07/17/2016 09:00) 9. prazosin 1 mg Oral cap nightly (Last dose: 07/17/2016 20:00) 10. lamotrigine 25 mg Oral tab 1 tabs 2 times per day (Last dose: 07/17/2016 20:00) 11. topiramate 50 mg oral cp24 1 cap twice a day (Last dose: 07/17/2016 20:00) - PMHx: Atrial Fib; Chronic Low Back Pain; Diabetes - NIDDM: controlled; Hypertension; Bipolar disorder; - PSHx: lung resection right; Appendectomy; - Social history: Smoking status: Patient states former smoker of tobacco. No barriers to communication noted, The patient speaks fluent [place]inean. - Family history: Not pertinent. - : The pt / caregiver states he / she is not on anticoagulants. Home medication list is obtained from the patient. - Exposure Risk Screening:: None identified. Screenin:30 Screening information is obtained from the patient. Fall risk: No risks identified. rw1 Assistance ADL's: requires no assistance with activities of daily living. Abuse/DV Screen: The patient / caregiver reports he/she is: not in a situation that causes fear, pain or injury. Nutritional screening: No deficits noted. home support is adequate. Assessment: 02:30 Reassessment: Patient appears in no apparent distress at this time. rw1 Vital Signs: 00:52 BP 138 / 67; Pulse 86; Resp 18; Temp 98.4; Pulse Ox 97% ; Weight 142.88 kg; Height 6 jun ft. (182.88 cm); Pain 2/10; 02:24 BP 158 / 77; Pulse 83; Resp 18; Temp 99.1(TE); Pulse Ox 96% on R/A; Pain 3/10; rw1 00:52 Body Mass Index 42.72 (142.88 kg, 182.88 cm) jun Vitals: 00:52 Log In Time: July 18, 2016 at 00:01. jun ED Course: 00:05 Patient visited by Kathryn Camarena. b 00:05 Patient moved to Waiting [facility] 01:01 Triage Initiated jun 01:07 Patient moved to Pre RCE jun 02:04 Patient moved to I2 / M2 ajs 02:05 Bill Gaona PA is PHCP. btw 02:05 Nelson Ross DO is Attending Physician. btw 02:05 Patient visited by Bill Gaona PA. btw 02:17 Jaycob Resendiz is Referral Physician. btw 02:30 The patient / caregiver is instructed regarding the plan of care and ED course. rw1 02:30 No IV's were initiated during this patient's visit. No procedures done that require rw1 assistance. 02:50 [facility] Payment Agreement was scanned into [email or web address] and attached to record. pm4 10:03 T-Sheet-- Draft Copy was scanned into [email or web address] and attached to record. klr Order Results: There are currently no results for this order. Outcome: 02:18 Discharge ordered by Provider. btw 02:30 Discharge Assessment: Patient awake, alert and oriented x 3. No cognitive and/or rw1 functional deficits noted. Patient verbalized understanding of disposition instructions. patient administered narcotics - no. The following High Risk Discharge criteria are identified: None. Discharged to home ambulatory. Condition: stable. Discharge instructions given to patient, Instructed on discharge instructions, follow up and referral plans. Demonstrated understanding of instructions, Pt was receptive of discharge instructions/ teaching. No special radiology studies were completed. Property sent home with patient. 02:32 Patient left the ED. rw1 Signatures: Olivia Kimble RN RN Rob Card LPN LPN rw1 Bill Gaona PA PA btw Slate, Amanda ajs Beck, Gabriela gjb Redder, Kathie klr Montondo, Paul, Reg Reg pm4 Chart Complete MTDD
== END 2016-07-18 02:32 | disposition home or self-care (01) ==
LOC: M ED 00:01
DX: S00.412A Abrasion of left ear, initial encounter (principal); X58.XXXA Exposure to other specified factors, initial encounter; Y92.9 Unspecified place or not applicable; Y93.9 Activity, unspecified; Y99.9 Unspecified external cause status; I48.91 Unspecified atrial fibrillation; G89.29 Other chronic pain; M54.5 Low back pain; E11.9 Type 2 diabetes mellitus without complications; I10 Essential (primary) hypertension; F31.9 Bipolar disorder, unspecified; Z87.891 Personal history of nicotine dependence; Z79.82 Long term (current) use of aspirin; Z79.01 Long term (current) use of anticoagulants; Z79.84 Long term (current) use of oral hypoglycemic drugs; Z91.041 Radiographic dye allergy status; Z88.0 Allergy status to penicillin

== ENCOUNTER 2017-07-29 11:14 | Day surgery (SDC) | payer OTHER, MEDICARE ==
[~2017-07-29 11:14] MED LIST changes: -/ATOR40TA OR; -ASPI325T OR; -BYSTOLIC PO; -COENCAP PO; +POTASSIUM CHLORIDE 10 MEQ SR TABLET PO; -SAPHRIS PO; -TRAZ50TA OR; -[UNRECOGNIZED DRUG - OTHER] PO
[2017-07-29] MEDS: LR 1,000 ML IV (12:02)
[2017-07-29 12:18] LABS: BEDSIDE GLUCOSE 89 MG/DL (70-105)
[2017-07-29] MEDS ORDERED: LIDOCAINE 2% INJ 100 MG/5 ML SDV (FOR ANES.) As Ordered (14:13)
[2017-07-29] MEDS ORDERED: MIDAZOLAM INJ 2 MG/2 ML VIAL (J2250) As Ordered (14:13)
[2017-07-29] MEDS ORDERED: PROPOFOL 200 MG/20 ML VIAL As Ordered ×2 (14:13→15:15)
[2017-07-29] MEDS ORDERED: fentaNYL 250 MCG/5 ML INJECTION (J3010) As Ordered (14:13)
[2017-07-29] MEDS ORDERED: ROCURONIUM BROMIDE 50 MG/5 ML VIAL As Ordered (14:34)
[2017-07-29] MEDS: LIDOCAINE W/EPINEPHRINE 1% 20ML VIAL As Ordered (15:25)
[2017-07-29] MEDS ORDERED: NEOSTIGMINE 10 MG/10 ML VIAL (J2710) As Ordered (15:58)
[2017-07-29] MEDS ORDERED: GLYCOPYRROLATE INJ 0.2 MG/ML 2 ML VIAL As Ordered (15:58)
[2017-07-29] MEDS ORDERED: PERCOCET 5MG/325MG TAB PO ×2 (17:00→17:15)
[2017-07-29] MEDS ORDERED: LR 1,000 ML IV ×2 (17:00)
[2017-07-29] MEDS ORDERED: ONDANSETRON 4MG/2ML VIAL (J2405) IV (17:00)
[2017-07-29] MEDS ORDERED: fentaNYL 100 MCG/2 ML INJECTION (J3010) IV (17:00)
[2017-07-29] MEDS ORDERED: MORPHINE 4 MG/ML 1ML VIAL (J2270) IV (17:15)
[2017-07-29] MEDS ORDERED: PROMETHAZINE INJ 25 MG/ML VIAL (J2550) IV (17:15)
[2017-07-29] MEDS ORDERED: lamoTRIgine 25 MG TAB PO (21:00)
[2017-07-30] MEDS ORDERED: NEBIVOLOL 5 MG TAB (BYSTOLIC) PO (09:00)
[2017-07-30] MEDS ORDERED: metFORMIN (GLUCOPHAGE) 1000 MG TABLET PO (09:00)
== END 2017-07-29 18:02 | disposition home or self-care (01) ==
LOC: M SDC 11:14
DX: G56.21 Lesion of ulnar nerve, right upper limb (principal); E66.01 Morbid (severe) obesity due to excess calories; Z68.42 Body mass index [BMI] 45.0-49.9, adult; I10 Essential (primary) hypertension; I48.0 Paroxysmal atrial fibrillation; E78.5 Hyperlipidemia, unspecified; G47.33 Obstructive sleep apnea (adult) (pediatric); M54.9 Dorsalgia, unspecified; R73.01 Impaired fasting glucose; F31.9 Bipolar disorder, unspecified; Z88.0 Allergy status to penicillin; Z91.041 Radiographic dye allergy status; Z79.899 Other long term (current) drug therapy; Z79.01 Long term (current) use of anticoagulants; Z79.82 Long term (current) use of aspirin; Z79.84 Long term (current) use of oral hypoglycemic drugs; Z87.891 Personal history of nicotine dependence; Z86.718 Personal history of other venous thrombosis and embolism
CPT/HCPCS: 64718

== ENCOUNTER → 2018-02-17 | Outpatient (CLI) | payer MEDICARE, SELFPAY, MEDICAID | LOC: M WUC 10:55 | DX: R76.11 Nonspecific reaction to tuberculin skin test without active tuberculosis (principal) | CPT/HCPCS: 71046 ==

== ENCOUNTER 2018-03-09 00:47 | Emergency (ER) | payer MEDICARE, MEDICAID ==
[2018-03-09 01:17] LABS: BASO # 0.1 10^3/uL (0.0-0.2); BASO % 0.6 % (0.0-1.0); EOS # 0.3 10^3/uL (0.0-0.50); EOS % 2.5 % (0.0-3.0); HEMATOCRIT 41.4 % (42.0-52.0); HEMOGLOBIN 13.5 g/dl (13.5-17.5); IMMATURE GRANULOCYTE % 0.5 % (0-3.0); LYMPH # 2.5 10^3/uL (1.5-4.5); LYMPH % 23.5 % (24.0-44.0); MEAN CORPUSCULAR HEMOGLOBIN 27.3 pg (27.0-33.0); MEAN CORPUSCULAR HGB CONC 32.6 g/dl (32.0-36.5); MEAN CORPUSCULAR VOLUME 83.6 fl (80.0-96.0); MONO % 9.7 % (0.0-5.0); NEUTROPHILS # 6.8 10^3/uL (1.8-7.7); NEUTROPHILS % 63.2 % (36.0-66.0); PLATELET COUNT, AUTOMATED 311 10^3/uL (150-450); RED BLOOD COUNT 4.95 10^6/uL (4.30-6.10); RED CELL DISTRIBUTION WIDTH 14.4 % (11.5-14.5); WHITE BLOOD COUNT 10.8 10^3/uL (4.0-10.0)
[2018-03-09 01:43] LABS: ANION GAP 8 MEQ/L (8-16); BLOOD UREA NITROGEN 12 MG/DL (7-18); CALCIUM LEVEL 8.5 MG/DL (8.5-10.1); CARBON DIOXIDE LEVEL 29 MEQ/L (21-32); CHLORIDE LEVEL 104 MEQ/L (98-107); CK-MB VALUE MASS < 1.0 NG/ML (<3.6); CPK CREATINE PHOSPHOKINASE 132 U/L (39-308); CREATININE FOR GFR 1.03 MG/DL (0.70-1.30); GLOMERULAR FILTRATION RATE > 60.0 (>56); GLUCOSE, FASTING 112 MG/DL (70-100); MB/CK RELATIVE INDEX 0.76 (< OR =4); POTASSIUM SERUM 3.7 MEQ/L (3.5-5.1); SODIUM LEVEL 141 MEQ/L (136-145); TROPONIN I < 0.02 NG/ML (< 0.10)
[2018-03-09] MEDS: KETOROLAC 30 MG/ML VIAL (J1885) IV (03:30)
[2018-03-09] MEDS: MORPHINE 4 MG/ML 1ML VIAL/SYRINGE (J2270) IV (05:15)
[2018-03-09 05:48] LABS: CK-MB VALUE MASS < 1.0 NG/ML (<3.6); CPK CREATINE PHOSPHOKINASE 120 U/L (39-308); MB/CK RELATIVE INDEX 0.83 (< OR =4); TROPONIN I < 0.02 NG/ML (< 0.10)
== END 2018-03-09 07:30 | disposition home or self-care (01) ==
LOC: M ED 00:47
DX: R07.1 Chest pain on breathing (principal); R11.0 Nausea; I48.91 Unspecified atrial fibrillation; E11.9 Type 2 diabetes mellitus without complications; E78.5 Hyperlipidemia, unspecified; Z87.09 Personal history of other diseases of the respiratory system; Z79.899 Other long term (current) drug therapy; Z79.84 Long term (current) use of oral hypoglycemic drugs
CPT/HCPCS: J1885

== ENCOUNTER 2018-03-19 19:31 | Emergency (ER) | payer MEDICARE ==
[2018-03-19 20:46] LABS: BASO % 0.4 % (0.0-1.0); EOS # 0.2 10^3/uL (0.0-0.50); EOS % 2.5 % (0.0-3.0); HEMATOCRIT 41.9 % (42.0-52.0); HEMOGLOBIN 13.4 g/dl (13.5-17.5); IMMATURE GRANULOCYTE % 0.4 % (0-3.0); LYMPH # 1.7 10^3/uL (1.5-4.5); LYMPH % 17.9 % (24.0-44.0); MEAN CORPUSCULAR HEMOGLOBIN 26.9 pg (27.0-33.0); MEAN CORPUSCULAR VOLUME 84.1 fl (80.0-96.0); MONO # 0.9 10^3/uL (0.0-0.8); NEUTROPHILS # 6.4 10^3/uL (1.8-7.7); NEUTROPHILS % 68.8 % (36.0-66.0); PLATELET COUNT, AUTOMATED 340 10^3/uL (150-450); RED BLOOD COUNT 4.98 10^6/uL (4.30-6.10); RED CELL DISTRIBUTION WIDTH 14.6 % (11.5-14.5); WHITE BLOOD COUNT 9.4 10^3/uL (4.0-10.0)
[2018-03-19 21:04] LABS: ANION GAP 6 MEQ/L (8-16); BLOOD UREA NITROGEN 11 MG/DL (7-18); CALCIUM LEVEL 8.5 MG/DL (8.5-10.1); CARBON DIOXIDE LEVEL 31 MEQ/L (21-32); CHLORIDE LEVEL 106 MEQ/L (98-107); CREATININE FOR GFR 0.96 MG/DL (0.70-1.30); FREE THYROXINE INDEX 3.6 % (1.4-3.8); GLOMERULAR FILTRATION RATE > 60.0 (>56); GLUCOSE, FASTING 96 MG/DL (70-100); MAGNESIUM LEVEL 1.8 MG/DL (1.8-2.4); POTASSIUM SERUM 3.9 MEQ/L (3.5-5.1); SODIUM LEVEL 143 MEQ/L (136-145); T UPTAKE 32 % (33-40); THYROXINE (T4) 11.2 UG/DL (4.5-12.0)
== END 2018-03-19 22:44 | disposition home or self-care (01) ==
LOC: M ED 19:31
DX: I49.1 Atrial premature depolarization (principal); I48.91 Unspecified atrial fibrillation; E11.9 Type 2 diabetes mellitus without complications; E78.5 Hyperlipidemia, unspecified
CPT/HCPCS: 93005

== ENCOUNTER 2019-04-27 21:08 | Emergency (ER) | payer MEDICARE ==
[~2019-04-27] VITALS: Ht 182.9 cm; Wt 140.4 kg
[~2019-04-27 21:08] MED LIST changes: +ASPI325T OR; +BYST5TAB2 PO; +BYSTOLIC PO; +COEN200C PO; +COENCAP PO; +ELIQ5TAB PO; +EPLE25TA PO; +GABA600T4 PO; +LAMO25TA4 PO; +LIPI1TAB2 OR; +METF10004 PO; +MULT1TAB10 PO; +OMEG100011 PO; +POTA10TA16 PO; -POTASSIUM CHLORIDE 10 MEQ SR TABLET PO; +PRAZ1CAP PO; +SAPHRIS PO; +TOPA50TA8 PO; +TRAZ50TA OR; +[UNRECOGNIZED DRUG - OTHER] PO
[2019-04-27] MEDS ORDERED: GABA-843 PO (21:21)
[2019-04-27 21:42] LABS: BASO # 0.1 10^3/uL (0.0-0.2); BASO % 0.6 % (0.0-1.0); EOS # 0.3 10^3/uL (0.0-0.5); HEMATOCRIT 42.2 % (42.0-52.0); HEMOGLOBIN 13.4 g/dl (13.5-17.5); LYMPH # 2.6 10^3/uL (1.5-5.0); MEAN CORPUSCULAR HEMOGLOBIN 27.6 pg (27.0-33.0); MEAN CORPUSCULAR HGB CONC 31.8 g/dl (32.0-36.5); MEAN CORPUSCULAR VOLUME 86.8 fl (80.0-96.0); NEUTROPHILS # 5.9 10^3/uL (1.5-8.5); PLATELET COUNT, AUTOMATED 324 10^3/uL (150-450); RED BLOOD COUNT 4.86 10^6/uL (4.30-6.10); WHITE BLOOD COUNT 9.9 10^3/uL (4.0-10.0)
[2019-04-27] MEDS ORDERED: IPRATROPIUM 0.5MG/ALBUTEROL 2.5MG INH SOL UD 3ML (DUONEB)(J7620) NEB ONE (22:00)
[2019-04-27] MEDS ORDERED: dexameTHASONE 20 MG/5 ML VIAL (J1100) IV ONE (22:00)
[2019-04-27 22:08] LABS: BLOOD UREA NITROGEN 10 MG/DL (7-18); CARBON DIOXIDE LEVEL 30 MEQ/L (21-32); CHLORIDE LEVEL 105 MEQ/L (98-107); CK-MB VALUE MASS < 1.0 NG/ML (<3.6); CPK CREATINE PHOSPHOKINASE 106 U/L (39-308); CREATININE FOR GFR 0.95 MG/DL (0.70-1.30); GLOMERULAR FILTRATION RATE > 60.0 (>49); GLUCOSE, FASTING 95 MG/DL (70-100); MB/CK RELATIVE INDEX 0.94 (< OR =4); NT-PRO BNP 17 PG/ML (<125); POTASSIUM SERUM 3.8 MEQ/L (3.5-5.1); SODIUM LEVEL 141 MEQ/L (136-145); TROPONIN I < 0.02 NG/ML (< 0.10)
[2019-04-27] MEDS ORDERED: KETOROLAC 30 MG/ML VIAL (J1885) IV ONE (23:00)
[2019-04-27] MEDS ORDERED: DOXYCYCLINE HYCLATE 100 MG TAB PO ONE (23:00)
[2019-04-27] MEDS ORDERED: DOXY100C37 PO (23:28)
[2019-04-27] MEDS ORDERED: PROAAER10 INH (23:28)
[2019-04-27] MEDS ORDERED: PRED20TA PO (23:28)
[2019-04-27 23:30] VITALS: BP 153/61
--- NOTE | 2019-04-28 07:23 | REP ---
Clinical: Chest pain. Comparison: 03/09/2018. Findings: Mild cardiomegaly cannot be excluded. Lung jimenez are relatively clear and without discrete focal consolidation, effusion, or pneumothorax. Skeletal structures are intact. Impression: No focal consolidation. Cannot exclude mild cardiomegaly. Electronically Signed by Arnoldo Villa MD 04/28/2019 07:15 A
--- NOTE | 2019-04-28 07:59 | ECGEPIP ---
[facility] - ED Test Date: 2019-04-27 Pat Name: JAY JAY ZUNIGA Department: Room: - Gender: Male Director Facilities Maintenance: jasmina : 1960 Requested By: AARON Baugh Order Number: [id number] Reading MD: Chance Graves Measurements Intervals [place] Rate: 74 P: 84 OK: 208 QRS: 50 QRSD: 97 T: 11 QT: 382 QTc: 426 Interpretive Statements SINUS RHYTHM WITH OCCASIONAL VENTRICULAR PREMATURE COMPLEXES NONSPECIFIC T WAVE ABNORMALITIES SIMILAR TO 03/19/18 Electronically Signed on 04-28-2019 7:59:00 EST by Chance Graves
== END 2019-04-27 23:45 | disposition home or self-care (01) ==
LOC: M ED 21:08
DX: J40 Bronchitis, not specified as acute or chronic (principal); R09.1 Pleurisy; E11.9 Type 2 diabetes mellitus without complications; I48.91 Unspecified atrial fibrillation; E78.5 Hyperlipidemia, unspecified; F43.10 Post-traumatic stress disorder, unspecified; G47.33 Obstructive sleep apnea (adult) (pediatric); Z79.899 Other long term (current) drug therapy; Z79.84 Long term (current) use of oral hypoglycemic drugs; Z79.82 Long term (current) use of aspirin; Z79.01 Long term (current) use of anticoagulants; Z88.0 Allergy status to penicillin; Z91.041 Radiographic dye allergy status; F17.210 Nicotine dependence, cigarettes, uncomplicated
CPT/HCPCS: 71045; 80048; 82550; 82553; 83880; 84484; 85025; 87205; 93005; 93041; 94640; 94760; 96374; 99285; J1100

== ENCOUNTER 2019-06-07 02:59 | Emergency (ER) | payer MEDICARE ==
[~2019-06-07] VITALS: Ht 182.9 cm; Wt 143.2 kg
[2019-06-07 02:59] VITALS: BP 152/80
[~2019-06-07 02:59] MED LIST changes: +DOXY100C37 PO; +GABA-843 PO; +PRED20TA PO; +PROAAER10 INH
== END 2019-06-07 06:40 | disposition left against medical advice (07) ==
LOC: M ED 02:59
DX: Z53.21 Procedure and treatment not carried out due to patient leaving prior to being seen by health care provider (principal)

== ENCOUNTER → 2019-06-09 | Outpatient (REF) | payer MEDICARE | LOC: M LAB REF 12:13 | PROVIDERS: ATTEND Internal Medicine | DX: S80.861A Insect bite (nonvenomous), right lower leg, initial encounter (principal); X58.XXXA Exposure to other specified factors, initial encounter ==

== ENCOUNTER 2019-07-11 10:15 | Emergency (ER) | payer MEDICARE ==
[~2019-07-11] VITALS: Ht 182.9 cm; Wt 147.7 kg
[~2019-07-11 10:15] MED LIST changes: -COEN200C PO; +RA C200C2 PO
[2019-07-11 11:50] LABS: BASO % 0.2 % (0.0-1.0); EOS # 0.2 10^3/uL (0.0-0.5); EOS % 2.4 % (0.0-3.0); LYMPH # 1.2 10^3/uL (1.5-5.0); LYMPH % 14.5 % (24.0-44.0); MEAN CORPUSCULAR HEMOGLOBIN 27.1 pg (27.0-33.0); MEAN CORPUSCULAR HGB CONC 31.8 g/dl (32.0-36.5); MEAN CORPUSCULAR VOLUME 85.1 fl (80.0-96.0); MONO # 0.8 10^3/uL (0.0-0.8); MONO % 9.2 % (0.0-5.0); NEUTROPHILS # 6.2 10^3/uL (1.5-8.5); NEUTROPHILS % 73.3 % (36.0-66.0); PLATELET COUNT, AUTOMATED 332 10^3/uL (150-450); RED BLOOD COUNT 5.17 10^6/uL (4.30-6.10); WHITE BLOOD COUNT 8.4 10^3/uL (4.0-10.0)
[2019-07-11 12:13] LABS: ERYTHROCYTE SEDIMENTATION RATE 26 mm/hr (0-20)
[2019-07-11] MEDS ORDERED: DOXYCYCLINE HYCLATE 100 MG in D5W MINI-BAG PLUS 100 ML IV ONE (13:45)
[2019-07-11] MEDS ORDERED: DOXY100C37 PO (14:37)
[2019-07-11 14:56] VITALS: BP 126/59
== END 2019-07-11 15:11 | disposition home or self-care (01) ==
LOC: M ED 10:15
DX: S90.821A Blister (nonthermal), right foot, initial encounter (principal); I48.91 Unspecified atrial fibrillation; E11.9 Type 2 diabetes mellitus without complications; E78.5 Hyperlipidemia, unspecified; Z88.0 Allergy status to penicillin; Z91.041 Radiographic dye allergy status; Z79.02 Long term (current) use of antithrombotics/antiplatelets; Z79.51 Long term (current) use of inhaled steroids; Z79.84 Long term (current) use of oral hypoglycemic drugs; Z79.899 Other long term (current) drug therapy

== ENCOUNTER 2020-02-08 09:19 | Emergency (ER) | payer MEDICARE ==
[~2020-02-08] VITALS: Ht 180.3 cm; Wt 140.1 kg
[2020-02-08] MEDS ORDERED: ceFAZolin SOD 1 GM in D5W MINI-BAG PLUS 50 ML IV ONE (10:30)
[2020-02-08 10:54] LABS: HEMATOCRIT 45.9 % (42.0-52.0); HEMOGLOBIN 14.9 g/dl (13.5-17.5); MEAN CORPUSCULAR HEMOGLOBIN 27.5 pg (27.0-33.0); MEAN CORPUSCULAR HGB CONC 32.5 g/dl (32.0-36.5); MEAN CORPUSCULAR VOLUME 84.8 fl (80.0-96.0); PLATELET COUNT, AUTOMATED 389 10^3/uL (150-450); RED BLOOD COUNT 5.41 10^6/uL (4.30-6.10); WHITE BLOOD COUNT 10.9 10^3/uL (4.0-10.0)
[2020-02-08 11:05] LABS: BLOOD UREA NITROGEN 9 MG/DL (7-18); C REACTIVE PROTEIN QUANTITATIV 2.96 MG/DL (0.00-0.30); CARBON DIOXIDE LEVEL 28 MEQ/L (21-32); CHLORIDE LEVEL 105 MEQ/L (98-107); CREATININE FOR GFR 0.88 MG/DL (0.70-1.30); GLOMERULAR FILTRATION RATE > 60.0 (>49); GLUCOSE, FASTING 104 MG/DL (70-100); SODIUM LEVEL 139 MEQ/L (136-145)
[2020-02-08] MEDS ORDERED: KEFL500C17 PO (11:10)
[2020-02-08] MEDS ORDERED: BACIOIN5 OP (11:11)
[2020-02-08 11:13] VITALS: BP 130/71
[2020-02-08 11:40] LABS: ERYTHROCYTE SEDIMENTATION RATE 25 mm/hr (0-20)
[2020-02-08] MEDS ORDERED: BACI500O8 TOP (22:00)
[2020-02-09] MEDS ORDERED: CEPH500C (14:30)
[2020-02-09] MEDS ORDERED: TRIA1CR80 TOP (19:03)
== END 2020-02-08 11:27 | disposition home or self-care (01) ==
LOC: M ED 09:19
DX: L03.119 Cellulitis of unspecified part of limb (principal); Z88.0 Allergy status to penicillin; Z91.041 Radiographic dye allergy status; Z79.51 Long term (current) use of inhaled steroids; Z79.82 Long term (current) use of aspirin; Z79.899 Other long term (current) drug therapy
CPT/HCPCS: 80048; 85025; 85027; 85652; 86140; 87040; 96374; 99283; J0690

== ENCOUNTER 2020-02-08 19:50 | Emergency (ER) | payer MEDICARE ==
[~2020-02-08] VITALS: Ht 180.3 cm; Wt 140.0 kg
[~2020-02-08 19:50] MED LIST changes: +BACIOIN5 OP; +KEFL500C17 PO
[2020-02-08 21:11] LABS: BASO % 0.2 % (0.0-1.0); EOS # 0.2 10^3/uL (0.0-0.5); EOS % 1.7 % (0.0-3.0); HEMATOCRIT 42.6 % (42.0-52.0); LYMPH # 1.5 10^3/uL (1.5-5.0); MEAN CORPUSCULAR HEMOGLOBIN 27.7 pg (27.0-33.0); MEAN CORPUSCULAR HGB CONC 32.9 g/dl (32.0-36.5); MEAN CORPUSCULAR VOLUME 84.4 fl (80.0-96.0); MONO % 8.3 % (0.0-5.0); NEUTROPHILS # 8.8 10^3/uL (1.5-8.5); NEUTROPHILS % 76.4 % (36.0-66.0); PLATELET COUNT, AUTOMATED 340 10^3/uL (150-450); RED BLOOD COUNT 5.05 10^6/uL (4.30-6.10); WHITE BLOOD COUNT 11.5 10^3/uL (4.0-10.0)
[2020-02-08] MEDS ORDERED: BACI500O8 TOP (22:00)
[2020-02-08 22:10] VITALS: BP 136/79
[2020-02-09] MEDS ORDERED: CEPH500C (14:30)
[2020-02-09] MEDS ORDERED: TRIA1CR80 TOP (19:03)
== END 2020-02-08 22:13 | disposition home or self-care (01) ==
LOC: M ED 19:50
DX: L03.119 Cellulitis of unspecified part of limb (principal); Z88.0 Allergy status to penicillin; Z91.041 Radiographic dye allergy status; Z79.51 Long term (current) use of inhaled steroids; Z79.82 Long term (current) use of aspirin; Z79.899 Other long term (current) drug therapy

== ENCOUNTER 2020-02-09 14:18 | Emergency (ER) | payer MEDICARE ==
[~2020-02-09] VITALS: Ht 180.3 cm; Wt 139.7 kg
[~2020-02-09 14:18] MED LIST changes: +BACI500O8 TOP
[2020-02-09] MEDS ORDERED: CEPH500C (14:30)
[2020-02-09 15:04] LABS: BASO % 0.1 % (0.0-1.0); EOS # 0.2 10^3/uL (0.0-0.5); EOS % 1.6 % (0.0-3.0); HEMATOCRIT 45.1 % (42.0-52.0); HEMOGLOBIN 14.5 g/dl (13.5-17.5); LYMPH # 1.5 10^3/uL (1.5-5.0); LYMPH % 14.5 % (24.0-44.0); MEAN CORPUSCULAR HEMOGLOBIN 27.3 pg (27.0-33.0); MEAN CORPUSCULAR HGB CONC 32.2 g/dl (32.0-36.5); MEAN CORPUSCULAR VOLUME 84.8 fl (80.0-96.0); MONO # 0.9 10^3/uL (0.0-0.8); MONO % 8.4 % (0.0-5.0); NEUTROPHILS # 7.8 10^3/uL (1.5-8.5); NEUTROPHILS % 75.1 % (36.0-66.0); PLATELET COUNT, AUTOMATED 336 10^3/uL (150-450); RED BLOOD COUNT 5.32 10^6/uL (4.30-6.10); WHITE BLOOD COUNT 10.4 10^3/uL (4.0-10.0)
[2020-02-09 15:24] LABS: BLOOD UREA NITROGEN 9 MG/DL (7-18); C REACTIVE PROTEIN QUANTITATIV 7.12 MG/DL (0.00-0.30); CALCIUM LEVEL 8.7 MG/DL (8.8-10.2); CARBON DIOXIDE LEVEL 29 MEQ/L (21-32); CHLORIDE LEVEL 105 MEQ/L (98-107); CREATININE FOR GFR 0.86 MG/DL (0.70-1.30); GLOMERULAR FILTRATION RATE > 60.0 (>49); GLUCOSE, FASTING 107 MG/DL (70-100); POTASSIUM SERUM 3.9 MEQ/L (3.5-5.1); SODIUM LEVEL 138 MEQ/L (136-145)
[2020-02-09 15:53] LABS: ERYTHROCYTE SEDIMENTATION RATE 30 mm/hr (0-20)
[2020-02-09] MEDS ORDERED: methylPREDNISolone 125MG 2ML VIAL IV ONE (16:30)
[2020-02-09] MEDS ORDERED: DALBAVANCIN 1,500 MG in D5W 250 ML IV ONE (18:00)
[2020-02-09] MEDS ORDERED: TRIA1CR80 TOP (19:03)
[2020-02-09 19:49] VITALS: BP 144/66
== END 2020-02-09 19:53 | disposition home or self-care (01) ==
LOC: M ED 14:18
DX: E11.9 Type 2 diabetes mellitus without complications (principal); I10 Essential (primary) hypertension; I48.91 Unspecified atrial fibrillation; G47.33 Obstructive sleep apnea (adult) (pediatric); F43.10 Post-traumatic stress disorder, unspecified; G43.909 Migraine, unspecified, not intractable, without status migrainosus; Z79.899 Other long term (current) drug therapy; Z79.84 Long term (current) use of oral hypoglycemic drugs; Z79.01 Long term (current) use of anticoagulants; Z88.0 Allergy status to penicillin; Z91.041 Radiographic dye allergy status
CPT/HCPCS: 36415; 80048; 85025; 85652; 86140; 96365; 96375; 99284; J0875; J2930

== ENCOUNTER → 2021-02-07 | Outpatient (CLI) | payer MEDICARE ==
[~2021-02-07] MED LIST changes: +CEPH500C; -DOXY100C37 PO; +DOXY1CAP62 PO; +GABA-282 PO; -GABA-843 PO; +TRIA1CR80 TOP
[2021-02-07 11:14] LABS: HEMATOCRIT 41.1 % (42.0-52.0); HEMOGLOBIN 13.2 g/dl (13.5-17.5); MEAN CORPUSCULAR HEMOGLOBIN 27.8 pg (27.0-33.0); MEAN CORPUSCULAR HGB CONC 32.1 g/dl (32.0-36.5); MEAN CORPUSCULAR VOLUME 86.5 fl (80.0-96.0); PLATELET COUNT, AUTOMATED 343 10^3/uL (150-450); RED BLOOD COUNT 4.75 10^6/uL (4.30-6.10); WHITE BLOOD COUNT 8.2 10^3/uL (4.0-10.0)
== END ==
LOC: M LAB 10:38
PROVIDERS: ATTEND Physician Assistant
DX: I48.0 Paroxysmal atrial fibrillation (principal)

== ENCOUNTER 2021-03-22 22:14 | Emergency (ER) | payer MEDICARE ==
[~2021-03-22] VITALS: Ht 182.9 cm; Wt 143.7 kg
[~2021-03-22 22:14] MED LIST changes: +DOXY-443 PO; -DOXY1CAP62 PO
[2021-03-22 22:15] VITALS: BP 161/74
--- OUTSIDE RECORDS SUMMARY | 2021-03-22 22:23 | CCD ---
Author Author Cory Young Organization [facility] Address Unknown Phone Unavailable Care Team Providers Care Planning Director Name Role Phone Elroy Young PCP Unavailable Allergies, Adverse Reactions, Alerts Allergy Substance Code C odeSystem Reaction Severity Critic ality Status Start Date Moderate Medications Medication Medication Code Medication CodeSystem Start Date Stop Date Route Dose Status Fill Instructions RxNorm Problems Problem Name Code CodeSy stem Alternate Code Alternate CodeSystem Start Date End Date Status Narrative Depressive episode, unspecified 47096176 SNOMED-CT 2020-01-20 Active Post-traumatic stress disorder, unspecified 05895606 SNOMED-CT 2019-08-14 Active Unspecified anxiety disorder [id number] SNOMED-CT 2020-01-20 Active Anxiety (finding) 58298070 SNOMED-CT 2020-01-20 Active Depressive episode, unspecified 89201292 SNOMED-CT 2020-01-20 Active Bipolar affective disorder, unspecified 41866863 SNOMED-CT 2019-08-14 Active Post-traumatic stress disorder, unspecified 19144049 SNOMED-CT 2019-08-14 Active Anxiety (finding) 86537439 SNOMED-CT 2020-01-20 Active Bipolar affective disorder, unspecified 65860199 SNOMED-CT 2019-08-14 Active Unspecified anxiety disorder 795498413 SNOMED-CT 2020-01-20 Active Relevant diagnostic tests/laboratory data Narrative No Information Procedures Procedure Name Code Code System Target Site Date of Procedure Status Service Delivery Location Device Cod e Device Name Device UID Psychotherapy, 45 minutes with patient [id number] SNOMED-CT () 2020-05-[address], [id number] Psychotherapy, 45 minutes with patient [id number] SNOMED-CT () 2020-06-[address], [id number] Psychotherapy, 45 minutes with patient [id number] SNOMED-CT () 2020-06-[address], [id number] Psychotherapy, 45 minutes with patient [id number] SNOMED-CT () 2020-07-[address], [id number] Psychotherapy, 45 minutes with patient [id number] SNOMED-CT () 2020-08-[address], [id number] Psychotherapy, 45 minutes with patient [id number] SNOMED-CT () 2020-08-[address], [id number] Psychotherapy, 45 minutes with patient [id number] SNOMED-CT () 2020-09-[address], [id number] Psychotherapy, 45 minutes with patient [id number] SNOMED-CT () 2020-10-[address], [id number] Psychotherapy, 45 minutes with patient [id number] SNOMED-CT () 2020-10-[address], [id number] Psychotherapy, 45 minutes with patient [id number] SNOMED-CT () 2020-11-[address], [id number] Initial Psychiatric Evaluation [id number] SNOMED-CT () 2020-03-[address], [id number] Health Monitoring / Risk Reduction Counseling - [facility] [id number] SNOMED-CT () 2020-04-[address], [id number] Individual Psychotherapy [id number] SNOMED-CT () 2020-04-[address], [id number] Individual Psychotherapy [id number] SNOMED-CT () 2020-05-[address], [id number] Individual Psychotherapy [id number] SNOMED-CT () 2020-06-[address], [id number] Individual Psychotherapy [id number] SNOMED-CT () 2020-06-[address], [id number] Individual Psychotherapy [id number] SNOMED-CT () 2020-07-[address], [id number] Individual Psychotherapy [id number] SNOMED-CT () 2020-08-[address], [id number] Individual Psychotherapy [id number] SNOMED-CT () 2020-08-[address], [id number] Individual Psychotherapy [id number] SNOMED-CT () 2020-09-[address], [id number] Individual Psychotherapy [id number] SNOMED-CT () 2020-10-[address], [id number] Individual Psychotherapy [id number] SNOMED-CT () 2020-10-[address], [id number] Individual Psychotherapy [id number] SNOMED-CT () 2020-11-[address], [id number] Psychiatric Diagnostic Evaluation without medical serv ices [id number] SNOMED-CT () 2020-01-[address], [id number] Encounters/Encounter Diagnoses Encounter Name Encounter Code Diagnosis Code Diagnosis Name Diagnosis CodeSystem Date of Diagnosis Service Delivery L ocation Pyschotherapy 30 Minute with Patient 60857 [id number] Unspecified anxiety disorder SNOMED-CT 2020-11-28 [facility] [address] [place] [address], [id number] Pyschotherapy 30 Minute with Patient 53524 [id number] Anxiety (finding) SNOMED-CT 2020-11-28 [facility] [address] [place] [address], [id number] Pyschotherapy 30 Minute with Patient 34194 [id number] Unspecified anxiety disorder SNOMED-CT 2020-11-28 [facility] [address] [place], [place], [id number] Pyschotherapy 30 Minute with Patient 26173 [id number] Anxiety (finding) SNOMED-CT 2020-11-28 [facility] [address], [id number] Vital Signs No Information Social History Element Description Description Start Date End Date Code CodeSystem AdditionalInfo SexAssignedAtBirth Male 1960 M AdministrativeGender Hospital Discharge Instructions * Reason For Referral Medical Equipment * FDA Assessments * Goals Section Goals Planned DateTime Cory would like to reduce his mental health symptoms to be able to cope with trauma and stressors within tolerable levels. 2020-05-11
--- OUTSIDE RECORDS SUMMARY | 2021-03-22 22:23 | CCD | Continuity of Care Document ---
Author Organization Unknown Address Unknown Phone Unavailable Care Team Providers Care Tube Sizer And Cutter Operator Name Role Phone Francheska Sandy DO AUTM [phone] SusanaTobi nettles DO AUTM [phone] Radha Adame PA-C AUTM [phone] Problems Active Problems Provider Date Paroxysmal atrial fibrillation Radha Adame PA-C Onset: 0 12/07/2015 Essential hypertension Radha Adame PA-C Onset: 5 Electrocardiogram abnormal Luis Cuenca NP Onset: 2012 Pure hypercholesterolemia JERICA Juárez-ESTHER Onset: 08/15/2011 Obesity Radha Adame PA-C Onset: 12/07/2015 Obstructive sleep apnea syndrome Radha Adame PA-C Onset: 11/03/2013 Dietary management surveillance Radha Adame PA-C Onset: 06/04/2017 Social History Type Date Description Comments Sex Unknown ETOH Use Rarely consumes beer Tobacco Use Start: Unknown End: Unknown Patient is a former smoker up to 2ppd x7yrs total, quit around 1992 Smoking Status Reviewed: 06/16/20 Patient is a former smoker up to 2ppd x7yrs total, quit around 1992 Exercise Type/Frequency Walks daily Exercise Limitations Back Pain Allergies, Adverse Reactions, Alerts Active Allergies Criticality Reaction | Severity Comments Date Penicillins Unable to assess criticality breathing pr oblems 02/14/2011 [place] Unable to assess criticality unknown 08/15/2011 IVP Dye Unable to assess criticality extremely ho t all over, profuse sweating 01/30/2011 Medications Active Medications SIG Qnty Indications Ordering Provide r Date Aspirin 325mg Tablets 1-2 by mouth every 4-6 hours as needed for pain Unknown 04/2015 Vitamin C 500mg Tablets 1 by mouth every day Unknown 08/11/2014 Centrum Silver Adult 50+ Adult 50 Tablets 1 by mouth every day Unknown 08/11/2014 Eliquis 5mg Tablets 1 by mouth twice a day 180tabs I48.0 Poli Julian MD 11/03/2013 Metformin HCL 1000mg Tablets 1 by mouth twice a day Francheska Sandy, DO 11/02/2013 Lamictal 25mg Tablets 2 po b id 90tabs Unknown 04/13/2013 Potassium Chloride ER 10Meq Capsul es ER 1 po qd 90caps Francheska Sandy, DO 03/07/2012 Bystolic 5mg Tablets 1 po john ly 90tabs Poli Julian MD 02/14/2011 Eplerenone 25mg Tablets 1 po daily 90tabs Poli Julian MD 02/14/2011 Topamax 100mg Tablets 1 po q d Francheska Sandy, DO 02/14/2011 Lipitor 40mg Tablets 1 po qhs 90tabs Tobi Licona MD 02/14/2011 Coq-10 100mg Capsules 4 po bi d Tobi Licona MD 02/14/2011 Immunizations Description No Information Available Vital Signs Date Vital Result Comment 06/16/2020 7:47am Weight 312.00 lb Home Weight 309lb Home weight Height 72 inches 6'0" BMI (Body Mass Index) 42.3 kg/m2 Heart Rate 88 /min Respiratory Rate 16 /min BP Systolic Sitting 138 mmHg BP Diastolic Sitting 82 mmHg O2 % BldC Oximetry 97 % 09/23/2019 11:37am Weight 311.00 lb Home Weight 305lb home weight Height 72 inches 6'0" BMI (Body Mass Index) 42.2 kg/m2 Heart Rate 80 /min Regular Respiratory Rate 16 /min BP Systolic Right Arm 136 mmHg sitting, large cuf f BP Diastolic Right Arm 80 mmHg sitting, large cu ff BP Systolic Left Arm 136 mmHg sitting BP Diastolic Left Arm 82 mmHg sitting Results Test Acquired Date Facility Test Result H/L Range Note BMP 11/21/2020 [facility] [address] [place], [place] [id number] [phone] Calcium Ser/Plasma Mass/Vol 9.3 Sodium 142 Carbon Dioxide Ser/Plasm 30 Chloride Serum/Plasma 103 Potassium 3.9 Glucose 127 High 74-106 Blood Urea Nitrogen 10 7-18 Creatinine 1.0 0.6-1.3 G F R -- Low >90 Hemoglobin A1c 11/21/2020 [facility] [address] [place], [place] [id number] [phone] Hemoglobin A1c 6.0 Lipid Profile/Cardiac Risk Pro 11/21/2020 [facility] [address] [place], [place] [id number] [phone] Triglycerides 82 30-150 Cholesterol 121 Low 131-200 HDL 55 35-60 LDL Cholesterol 50 50-159 Chol/HDL Ratio -- Procedures Description No Information Available Medical Devices Description No Information Available Encounters Description No Information Available Assessments Description No Information Available Plan of Treatment Future Appointment(s):* 01/25/2021 11:30 am - Radha Adame PA-C at Main Office 06/16/2020 - Radha Adame PA-C* I48.0 Paroxysmal atrial fibrillation * I10 Essential (primary) hypertension * R94.31 Abnormal electrocardiogram [ECG] [EKG] * E78.00 Pure hypercholesterolemia, unspecified * G47.33 Obstructive sleep apnea (adult) (pediatric) * Z71.3 Dietary counseling and surveillance* Recommendations:* Follow a low fat/low cholesterol diet and do at least 30 minutes of sustained aerobic activity daily. * All * Follow up:* 6 month follow up. Request last lipids form PCP. Functional Status Functional Condition Comment Date Status Independent with all ADL's Activ e Mental Status Description No Information Available Referrals Description No Information Available
--- OUTSIDE RECORDS SUMMARY | 2021-03-22 22:23 | CCD ---
Author Author Cory Young Organization [facility] Address Unknown Phone Unavailable Care Team Providers Care Credit Analyst Name Role Phone Elroy Young PCP Unavailable Allergies, Adverse Reactions, Alerts Allergy Substance Code C odeSystem Reaction Severity Critic ality Status Start Date Moderate Medications Medication Medication Code Medication CodeSystem Start Date Stop Date Route Dose Status Fill Instructions RxNorm Problems Problem Name Code CodeSy stem Alternate Code Alternate CodeSystem Start Date End Date Status Narrative Depressive episode, unspecified [id number] SNOMED-CT 2020-01-20 Active Bipolar affective disorder, unspecified [id number] SNOMED-CT 2019-08-14 Active Anxiety (finding) 80881753 SNOMED-CT 2020-01-20 Active Depressive episode, unspecified 40977540 SNOMED-CT 2020-01-20 Active Anxiety (finding) 15800142 SNOMED-CT 2020-01-20 Active Unspecified anxiety disorder [id number] SNOMED-CT 2020-01-20 Active Post-traumatic stress disorder, unspecified 11706177 SNOMED-CT 2019-08-14 Active Post-traumatic stress disorder, unspecified 66445551 SNOMED-CT 2019-08-14 Active Bipolar affective disorder, unspecified 59916008 SNOMED-CT 2019-08-14 Active Unspecified anxiety disorder 469358401 SNOMED-CT 2020-01-20 Active Relevant diagnostic tests/laboratory data Narrative No Information Procedures Procedure Name Code Code System Target Site Date of Procedure Status Service Delivery Location Device Cod e Device Name Device UID Psychotherapy, 45 minutes with patient [id number] SNOMED-CT () 2020-05-[address], [id number] Psychotherapy, 45 minutes with patient [id number] SNOMED-CT () 2020-06-[address], [id number] Psychotherapy, 45 minutes with patient [id number] SNOMED-CT () 2020-06-[address], [id number] Psychotherapy, 45 minutes with patient [id number] SNOMED-CT () 2020-07-[address], [id number] Psychotherapy, 45 minutes with patient [id number] SNOMED-CT () 2020-08-[address], [id number] Psychotherapy, 45 minutes with patient [id number] SNOMED-CT () 2020-08-[address], [id number] Psychotherapy, 45 minutes with patient [id number] SNOMED-CT () 2020-09-[address], [id number] Psychotherapy, 45 minutes with patient [id number] SNOMED-CT () 2020-10-[address], [id number] Psychotherapy, 45 minutes with patient [id number] SNOMED-CT () 2020-10-[address], [id number] Psychotherapy, 45 minutes with patient [id number] SNOMED-CT () 2020-11-[address], [id number] Psychotherapy, 45 minutes with patient [id number] SNOMED-CT () 2021-01-[address], [id number] Initial Psychiatric Evaluation [id number] SNOMED-CT () 2020-03-[address], [id number] Health Monitoring / Risk Reduction Counseling - [facility] [id number] SNOMED-CT () 2020-04-[address], [id number] Individual Psychotherapy [id number] SNOMED-CT () 2020-04-[address], [id number] Individual Psychotherapy [id number] SNOMED-CT () 2020-05-[address], [id number] Individual Psychotherapy [id number] SNOMED-CT () 2020-06-[address], [id number] Individual Psychotherapy [id number] SNOMED-CT () 2020-06-[address], [id number] Individual Psychotherapy [id number] SNOMED-CT () 2020-07-[address], [id number] Individual Psychotherapy [id number] SNOMED-CT () 2020-08-[address], [id number] Individual Psychotherapy [id number] SNOMED-CT () 2020-08-[address], [id number] Individual Psychotherapy [id number] SNOMED-CT () 2020-09-[address], [id number] Individual Psychotherapy [id number] SNOMED-CT () 2020-10-[address], [id number] Individual Psychotherapy [id number] SNOMED-CT () 2020-10-[address] [facility] [address] [place], [place], [id number] Individual Psychotherapy [id number] SNOMED-CT () 2020-11-[address], [id number] Individual Psychotherapy [id number] SNOMED-CT () 2021-01-[address], [id number] Psychiatric Diagnostic Evaluation without medical serv ices [id number] SNOMED-CT () 2020-01-[address], [id number] Encounters/Encounter Diagnoses Encounter Name Encounter Code Diagnosis Code Diagnosis Name Diagnosis CodeSystem Date of Diagnosis Service Delivery L ocation Pyschotherapy 30 Minute with Patient [address] [id number] Unspecified anxiety disorder SNOMED-CT 2021-01-24 [facility] [address] [place], [place], [id number] Pyschotherapy 30 Min[address] with Patient [address] [id number] Anxiety (finding) SNOMED-CT 2021-01-24 [facility] [address] [place], [place], [id number] Pyschotherapy 30 Minute with Patient 90984 [id number] Unspecified anxiety disorder SNOMED-CT 2021-01-24 [facility] [address] [place], [place], [id number] Pyschotherapy 30 Minute with Patient [address] [id number] Anxiety (finding) SNOMED-CT 2021-01-24 [facility] [address] [place] [address], [id number] Vital Signs No Information Social History Element [...]
--- OUTSIDE RECORDS SUMMARY | 2021-03-22 22:23 | CCD | Continuity of Care Document ---
Author Author Cory LOPES PA-C Organization Unknown Address [address] [place] [address] Phone [phone] Care Team Providers Care District Manager Postal Service Name Role Phone Francheska Sandy DO AUTM [phone] Tobi Ames DO AUTM [phone] Radha Lopes PA-C AUTM [phone] Problems Active Problems Provider Date Paroxysmal atrial fibrillation Radha Lopes PA-C Onset: 0 12/07/2015 Essential hypertension Radha Lopes PA-C Onset: 5 Electrocardiogram abnormal Luis Cuenca NP Onset: 2012 Pure hypercholesterolemia JERICA Juárez-BC Onset: 08/15/2011 Obesity Radha Lopes PA-C Onset: 12/07/2015 Obstructive sleep apnea syndrome Radha Lopes PA-C Onset: 11/03/2013 Dietary management surveillance Radha Lopes PA-C Onset: 06/04/2017 Social History Type Date Description Comments Sex Unknown ETOH Use Rarely consumes beer Tobacco Use Start: Unknown End: Unknown Patient is a former smoker up to 2ppd x7yrs total, quit around 1992 Smoking Status Reviewed: 01/25/21 Patient is a former smoker up to [...] by mouth twice a day Francheska Sandy, 11/02/2013 Lamictal 25mg Tablets 2 po b id 90tabs Unknown 04/13/2013 Potassium Chloride ER 10Meq Capsul es ER 1 po qd 90caps Francheska Sandy, 03/07/2012 Bystolic 5mg Tablets 1 po john ly 90tabs Poli Julian MD 02/14/2011 Eplerenone 25mg Tablets 1 po daily 90tabs Poli Julian MD 02/14/2011 Topamax 100mg Tablets 1 po q d Francheska Sandy, 02/14/2011 Lipitor 40mg Tablets 1 po qhs 90tabs Tobi Licona MD 02/14/2011 Coq-10 100mg Capsules 4 po bi d Tobi Licona MD 02/14/2011 Immunizations Description No Information Available Vital Signs Date Vital Result Comment 01/25/2021 9:17am Weight 319.00 lb Home Weight 316lb Height 72 inches 6'0" BMI (Body Mass Index) 43.3 kg/m2 Heart Rate 72 /min Regular Respiratory Rate 16 /min BP Systolic Right Arm 132 mmHg sitting, large cuf f BP Diastolic Right Arm 76 mmHg sitting, large cu ff BP Systolic Left Arm 136 mmHg sitting BP Diastolic Left Arm 80 mmHg sitting 06/16/2020 7:47am Weight 312.00 lb Home Weight 309lb Home weight Height 72 inches 6'0" BMI (Body Mass Index) 42.3 kg/m2 Heart Rate 88 /min Respiratory Rate 16 /min BP Systolic Sitting 138 mmHg BP Diastolic Sitting 82 mmHg O2 % BldC Oximetry 97 % Results Test Acquired Date Facility Test Result H/L Range Note Complete Blood Count 02/07/2021 [facility] enter [phone] White Blood Count 8.2 10 Normal 4.0-10.0 Red Blood Count 4.75 10 Normal 4.30-6.10 Hemoglobin 13.2 g/dL Low 13.5-17.5 Hematocrit 41.1 % Low 42.0-52.0 Mean Corpuscular Volume 86.5 fl Normal 80.0-96.0 Mean Corpuscular Hemoglobin 27.8 pg Normal 27.0-33.0 Mean Corpuscular HGB Conc 32.1 g/dL Normal 32.0-36.5 Red Cell Distribution Width 14.2 % Normal 11.5-14.5 Platelet Count, Automated 343 10 Normal 150-450 Nucleated Red Blood Cell % 0.0 % Normal 0-0 BMP 11/21/2020 [facility] [address] [place] [address] [phone] Calcium Ser/Plasma Mass/Vol 9.3 Sodium 142 Carbon Dioxide Ser/Plasm 30 Chloride Serum/Plasma 103 Potassium 3.9 Glucose 127 High 74-106 Blood Urea Nitrogen 10 7-18 Creatinine 1.0 0.6-1.3 G F R -- Low >90 Hemoglobin A1c 11/21/2020 [facility] [address] [place], [place] [address] [phone] Hemoglobin A1c 6.0 Lipid Profile/Cardiac Risk Pro 11/21/2020 [facility] [address] [place], [place] [address] [phone] Triglycerides 82 30-150 Cholesterol 121 Low 131-200 HDL 55 35-60 LDL Cholesterol 50 50-159 Chol/HDL Ratio -- Procedures Date Code Description Status 01/25/2021 34077 Office/Outpatient Established Mo d MDM 30-39 Min Completed 01/25/2021 71200 ECG 12-Lead Completed Medical Devices Description No Information Available Encounters Type Date Location Provider Dx Diagnosis Office Visit 01/25/2021 11:30a Main Office Radha Lopes PA-C I48.0 Paroxysmal atrial fibrillation I10 Essential (primary) hyperten joshua R94.31 Abnormal electrocardiogram [ ECG] [EKG] E78.00 Pure hypercholesterolemia, u nspecified G47.33 Obstructive sleep apnea (hue lt) (pediatric) Z71.3 Dietary counseling and surve illance Assessments Date Code Description Provider 01/25/2021 I48.0 Paroxysmal atrial fibrillation K manolo Lopes PA-C 01/25/2021 I10 Essential (primary) hypertension Radha Lopes PA-C 01/25/2021 R94.31 Abnormal electrocardiogram [ECG] [EKG] Radha Lopes PA-C 01/25/2021 E78.00 Pure hypercholesterolemia, unspe cified Radha Lopes PA-C 01/25/2021 G47.33 Obstructive sleep apnea (adult) (pediatric) Radha Lopes PA-C 01/25/2021 Z71.3 Dietary counseling and surveilla nce Radha Lopes PA-C Plan of Treatment Future Appointment(s):* 07/28/2021 10:15 am - Radha Lopes PA-C at Main Office 01/25/2021 - Radha Lopes PA-C* I48.0 Paroxysmal atrial fibrillation * I10 Essential (primary) hypertension * R94.31 Abnormal electrocardiogram [ECG] [EKG] * E78.00 Pure hypercholesterolemia, unspecified * G47.33 Obstructive sleep apnea (adult) (pediatric) * Z71.3 Dietary counseling and surveillance* Recommendations:* Follow a low fat/low cholesterol diet and do at least 30 minutes of sustained aerobic activity daily. * All * Follow up:* 6 month follow up. Functional Status Functional Condition Comment Date Status Independent with all ADL's Activ e Mental Status Description No Information Available Referrals Description No Information Available
--- OUTSIDE RECORDS SUMMARY | 2021-03-22 22:23 | CCD | Continuity of Care Document ---
Author Author Cory LOPES PA-C Organization Unknown Address [address] [place] [address] Phone [phone] Care Team Providers Care Career And Transition Teacher Name Role Phone Francheska Sandy DO AUTM [phone] Tobi Ames DO AUTM [phone] Radha Lopes PA-C AUTM [phone] Problems Active Problems Provider Date Paroxysmal atrial [...] Test Result H/L Range Note BMP 11/21/2020 [facility] [address] [place] [address] [phone] Calcium Ser/Plasma Mass/Vol 9.3 Sodium 142 Carbon Dioxide Ser/Plasm 30 Chloride Serum/Plasma 103 Potassium 3.9 Glucose 127 High 74-106 Blood Urea Nitrogen 10 7-18 Creatinine 1.0 0.6-1.3 G F R -- Low >90 Hemoglobin A1c 11/21/2020 [facility] [address] [place] [address] [phone] Hemoglobin A1c 6.0 Lipid Profile/Cardiac Risk Pro 11/21/2020 [facility] [address] [place] [address] [phone] Triglycerides 82 30-150 Cholesterol 121 Low 131-200 HDL 55 35-60 LDL Cholesterol 50 50-159 Chol/HDL Ratio -- Procedures Date Code Description Status 01/25/2021 21462 Office/Outpatient Established Mo d MDM 30-39 Min Completed 01/25/2021 11451 ECG 12-Lead Completed Medical Devices Description No [...] - Radha Lopes PA-C* I48.0 Paroxysmal atrial fibrillation* New Labs:* Complete Blood Count, Scheduled: 01/25/21 * I10 Essential (primary) hypertension * R94.31 [...]
--- OUTSIDE RECORDS SUMMARY | 2021-03-22 22:23 | CCD | Continuity of Care Document ---
Author Author Cory LOPES PA-C Organization Unknown Address [address] [place] [address] Phone [phone] Care Team Providers Care Research Methods Instructor Name Role Phone Francheska Sandy DO AUTM [phone] Tobi Ames DO AUTM [phone] Radha Lopes PA-C AUTM [phone] Problems Active Problems Provider Date Paroxysmal atrial fibrillation Radha Lopes PA-C Onset: 0 12/07/2015 Essential hypertension Radha Lopes PA-C Onset: 5 Electrocardiogram abnormal Luis Cuenca NP Onset: 2012 Pure hypercholesterolemia JEIRCA Juárez-BC Onset: 08/15/2011 Obesity Radha Lopes PA-C [...] Test Result H/L Range Note BMP 11/21/2020 [facility] [address] [place] [address] [phone] Calcium Ser/Plasma Mass/Vol 9.3 Sodium 142 Carbon Dioxide Ser/Plasm 30 Chloride Serum/Plasma 103 Potassium 3.9 Glucose 127 High 74-106 Blood Urea Nitrogen 10 7-18 Creatinine 1.0 0.6-1.3 G F R -- Low >90 Hemoglobin A1c 11/21/2020 [facility] [address] [place] [address] [phone] Hemoglobin A1c 6.0 Lipid Profile/Cardiac Risk Pro 11/21/2020 [facility] [address] [place] [address] [phone] Triglycerides 82 30-150 Cholesterol 121 Low 131-200 HDL 55 35-60 LDL Cholesterol 50 50-159 Chol/HDL Ratio -- Procedures Date Code Description Status 01/25/2021 00746 Office/Outpatient Established Mo d MDM 30-39 Min Completed 01/25/2021 61783 ECG 12-Lead Completed Medical Devices Description No [...]
--- OUTSIDE RECORDS SUMMARY | 2021-03-22 22:23 | CCD | Continuity of Care Document ---
Author Author Cory Bui MD Organization Unknown Address [address] [facility] [address] [place] [address] Phone [phone] Care Team Providers Care Fish Bailer Name Role Phone [facility] AUTM Francheska Sandy DO AUTM Unavailable Problems Active Problems Provider Date Pure hypercholesterolemia Jewell Graf FNP Onset: 012 Hypokalemia Jewell Graf FNP Onset: 01/23/2012 Hematuria syndrome Jewell Graf FNP Onset: 01/23/2012 Type 2 diabetes mellitus JERICA Rai Onset: 10/23/19 19 Social History Type Date Description Comments Sex Unknown ETOH Use Denies alcohol use Tobacco Use Start: Unknown End: Unknown Patient is a former smoker QUIT AT AGE 35 X 20 YRS 2 PACKS A DAY Allergies, Adverse Reactions, Alerts Active Allergies Reaction Severity Comments Date Penicillins RASH AND HIVES 12/07/2010 Contrast Dye Iodine - hives and shortness of breath 11/28/2012 Ambien Anaphylaxis 12/10/2012 Medications Active Medications SIG Qnty Indications Ordering Provide r Date Glucophage 1000mg Tablets take one tablet by mouth twice a day 180tabs Francheska Sandy DO 08/25/2019 Atorvastatin Calcium 40mg Tablets Take One Tablet By Mouth Once Daily 90tabs Francheska Sandy DO 09/25 Clobetasol Propionate 0.05% Cream apply to ecezma areas bid,do not use on face . 15units Francheska lindsey DO 05/09/2018 Aspirin Ec 81mg Tablets DR 1 by mouth every day Francheska Sandy DO 09/17/2016 Vitamin C 500mg Capsules qd Francheska Sandy DO 07/24/2012 Potassium Chloride ER 10Meq Capsul es ER Take One Capsule By Mouth Once Daily 90caps Francheska Du ,DO 12/04/2011 Multivitamins Mens Tablets 1 po qd 30tabs Francheska Du,DO 12/03/2011 Co-Enzyme Q10 200mg Capsules 1 po bid Francheska Sandy,DO 12/03/2011 Bystolic 5mg Tablets Take One Tablet By Mouth Once Daily 90tabs Francheska Sandy,DO 10/25/2009 Topiramate 50mg Tablets take 3 tablet by mouth twice a day Unknown Eplerenone 25mg Tablets Take One Tablet By Mouth Once Daily 30tabs Francheska Clarkegs,DO Lamictal 25mg Tablets 2 po bi d [facility] Eliquis 5mg Tablets 1 by mouth twice a day Unknown Immunizations Description No Information Available Vital Signs Date Vital Result Comment 11/21/2020 9:18am BP Systolic 128 mmHg RT Arm BP Diastolic 72 mmHg RT Arm Heart Rate 76 /min Height 72 inches 6'0" Weight 322.00 lb BMI (Body Mass Index) 43.7 kg/m2 02/09/2020 1:12pm Body Temperature 98.2 F Height 72 inches 6'0" Weight 307.00 lb BMI (Body Mass Index) 41.6 kg/m2 Results Test Acquired Date Facility Test Result H/L Range Note Basic Metabolic Panel 11/21/2020 [facility] Helicopter Specialist: Dr Giovanni [place] [address] [phone] Glucose 127 mg/dL High 74 - 99 1 BUN 10 mg/dL 7 - 18 Creatinine 1.0 mg/dL 0.6 - 1.3 Sodium 142 mEq/L 136 - 145 Potassium 3.9 mEq/L 3.5 - 5.1 Chloride 103 mEq/L 98 - 107 Carbon Dioxide 30 mEq/L 21 - 32 Calcium 9.3 mg/dL 8.5 - 10.1 GFR >= 60 mL/min >60 GFR >= 60 mL/min >60 2 A1c 11/21/2020 [facility] Helicopter Specialist: Dr Giovanni [place] [address] [phone] Hba1c 6.0 % High <5.7 3 Est Avg Glucose 125 mg/dL High 60 - 110 Microalbumin/Creatinine Urine 11/21/2020 [facility], Helicopter Specialist: [place] [address] [phone] Microalbumin Urine 3.9 mg/L 1.3 - 20.0 Urine Creatinine 150.0 mg/dL High 30.0 - 125.0 Microalb/Creat Ratio 2.6 ug/mg 0.0 - 30.0 Lipid Profile 11/21/2020 [facility] Helicopter Specialist: [place] [address] [phone] Cholesterol 121 mg/dL Low 131 - 200 Triglycerides 82 mg/dL 30 - 150 HDL Cholesterol 55 mg/dL 35 - 60 LDL (Calculated) 50 CALC Low 50 - 159 1 100-125 mg/dL PRE-DIABET ES/FASTING >126 mg/dL DIABETES/FASTING 2 CHRONIC KIDNEY DISEASE STAGI NG PER NKF STAGE I & II GFR >= 60 NORMAL TO MILDLY DECREASED STAGE III GFR 30-59 MODERATELY DECREASED STAGE IV GFR 15-29 SEVERELY DECREASED STAGE V GFR <15 VERY LITTLE GFR LEFT ESRD GFR <15 ON CAST IRON DIPPER 3 Lab Result Notes: Pre-Diabetes 5.7 - 6.4 % Diabetes = or > 6.5% Procedures Date Code Description Status 11/21/2020 52738 Office/Outpatient Established Mo d MDM 30-39 Min Completed 06/17/2020 [id number] Diabetic Retinal Eye Exam [facility] 12/20/2016 [id number] Diabetic Retinal Eye Exam [facility] 03/12/2014 [id number] Diabetic Retinal Eye Exam [facility] Medical Devices Description No Information Available Encounters Type Date Location Provider Dx Diagnosis Office Visit 11/21/2020 9:20a [facility] I48.20 Chronic atrial fibrillation, unspecified 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 R73.03 Prediabetes E78.5 Hyperlipidemia, unspecified I10 Essential (primary) hyperten joshua G43.909 Migraine, unsp, not intracta ble, without status migrainosus E66.01 Morbid (severe) obesity due to excess calories Z68.41 Body mass index [BMI] 40.0-4 4.9, adult Assessments Date Code Description Provider 11/21/2020 I48.20 Chronic atrial fibrillation, uns pecified Francheska Sandy, 11/21/2020 Z79.01 [facility] (current) use of antic oagulants Francheska Sandy DO 11/21/2020 R73.03 Prediabetes Francheska Sandy DO 11/21/2020 E78.5 Hyperlipidemia, unspecified Judah Sandy, 11/21/2020 I10 Essential (primary) hypertension Francheska Sandy, 11/21/2020 G43.909 Migraine, unspecified, not intra ctable, without status migra Francheska Sandy,DO 11/21/2020 E66.01 Morbid (severe) obesity due to e xcess calories Francheska Sandy, 11/21/2020 Z68.41 Body mass index [BMI]40.0-44.9, adult Francheska Sandy DO Plan of Treatment Future Appointment(s):* 05/22/2021 8:20 am - Francheska Sandy DO at [facility] 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
--- OUTSIDE RECORDS SUMMARY | 2021-03-22 22:24 | CCD ---
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 2:00:00 AM EST [facility] ([facility]) Individual psychotherapy (regime/therapy) 06/08/2020 1 2:00:00 AM EST [facility] ([facility]) Individual psychotherapy (regime/therapy) 06/08/2020 1 2:00:00 AM EST [facility] ([facility]) Individual psychotherapy (regime/therapy) 06/08/2020 1 2:00:00 AM EST [facility] ([facility]) Individual psychotherapy (regime/therapy) 06/08/2020 1 2:00:00 AM EST [facility] ([facility]) Individual psychotherapy (regime/therapy) 06/08/2020 1 2:00:00 AM EST [facility] ([facility]) Individual psychotherapy (regime/therapy) 06/08/2020 1 2:00:00 AM EST [facility] ([facility]) Individual psychotherapy (regime/therapy) 06/08/2020 1 2:00:00 AM EST [facility] ([facility]) Individual psychotherapy (regime/therapy) 06/08/2020 1 2:00:00 AM EST [facility] ([facility]) Individual psychotherapy (regime/therapy) 06/08/2020 1 2:00:00 AM EST [facility] ([facility]) Individual psychotherapy (regime/therapy) 05/11/2020 1 2:00:00 AM EST [facility] ([facility]) Individual psychotherapy (regime/therapy) 05/11/2020 1 2:00:00 AM EST [facility] ([facility]) Individual psychotherapy (regime/therapy) 05/11/2020 1 2:00:00 AM EST [facility] ([facility]) Individual psychotherapy (regime/therapy) 05/11/2020 1 2:00:00 AM EST [facility] ([facility]) Individual psychotherapy (regime/therapy) 05/11/2020 1 2:00:00 AM EST [facility] ([facility]) Individual psychotherapy (regime/therapy) 05/11/2020 1 2:00:00 AM EST [facility] ([facility]) Individual psychotherapy (regime/therapy) 05/11/2020 1 2:00:00 AM EST [facility] ([facility]) Individual psychotherapy (regime/therapy) 05/11/2020 1 2:00:00 AM EST [facility] ([facility]) Individual psychotherapy (regime/therapy) 05/11/2020 1 2:00:00 AM EST [facility] ([facility]) Individual psychotherapy (regime/therapy) 05/11/2020 1 2:00:00 AM EST [facility] ([facility]) Individual psychotherapy (regime/therapy) 04/27/2020 1 2:00:00 AM EST [facility] ([facility]) Individual psychotherapy (regime/therapy) 04/27/2020 1 2:00:00 AM EST [facility] ([facility]) Individual psychotherapy (regime/therapy) 04/27/2020 1 2:00:00 AM EST [facility] ([facility]) Individual psychotherapy (regime/therapy) 04/27/2020 1 2:00:00 AM EST [facility] ([facility]) Individual psychotherapy (regime/therapy) 04/27/2020 1 2:00:00 AM EST [facility] ([facility]) Education about risk reduction technique (procedure) 04/25/2020 12:00:00 AM EST [facility] ([facility] Education about risk reduction technique (procedure) 04/25/2020 12:00:00 AM EST [facility] ([facility] Education about risk reduction technique (procedure) 04/25/2020 12:00:00 AM EST [facility] ([facility] Education about risk reduction technique (procedure) 04/25/2020 12:00:00 AM EST [facility] ([facility] Education about risk reduction technique (procedure) 04/25/2020 12:00:00 AM EST [facility] ([facility]) Initial psychiatric evaluation (procedure) 03/14/2020 12:00:00 AM EDT [facility] ([facility]) Initial psychiatric evaluation (procedure) 03/14/2020 12:00:00 AM EDT [facility] ([facility]) Initial psychiatric evaluation (procedure) 03/14/2020 12:00:00 AM EDT [facility] ([facility]) Initial psychiatric evaluation (procedure) 03/14/2020 12:00:00 AM [facility]) Initial psychiatric evaluation (procedure) 03/14/2020 12:00:00 AM EDT [facility]) Results ID Date Data Source [id number] 02/07/2021 10:53:00 AM EDT [facility] ([facility]) Name Value Range Interpretation Code Description Data Mari rce(s) Supporting Document(s) White Blood Count 8.2 10 4.0-10.0 [facility] ([facility]) Red Blood Count 4.75 10 4.30-6.10 [facility] ([facility]) Hemoglobin 13.2 g/dL 13.5-17.5 [facility] ([facility]) Hematocrit 41.1 % 42.0-52.0 [facility] ([facility]) Mean Corpuscular Volume 86.5 fl 80.0-96.0 M [facility] ([facility]) Mean Corpuscular Hemoglobin 27.8 pg 27.0-33.0 [facility] ([facility]) Mean Corpuscular HGB Conc 32.1 g/dL 32.0-36.5 [facility] ([facility]) Red Cell Distribution Width 14.2 % 11.5-14.5 [facility] ([facility]) Platelet Count, Automated 343 10 150-450 [facility] ([facility]) Nucleated Red Blood Cell % 0.0 % 0-0 [facility] ([facility]) ID Date Data Source [id number] 11/21/2020 04:22:00 PM EDT [facility] ([facility]) Name Value Range Interpretation Code Description Data Mari rce(s) Supporting Document(s) Triglycerides 82 30-150 [facility] ([facility]) HDL 55 35-60 [facility] ([facility]) Cholesterol 121 131-200 [facility] ([facility]) Cholesterol in LDL [Mass/volume] in Serum or Plasma by calculation 50 50-159 [facility] ([facility]) Chol/HDL Ratio Laboratory test result [facility] ([facility]) ID Date Data Source [id number] 11/21/2020 04:22:00 PM EDT [facility]) Name Value Range Interpretation Code Description Data Mari rce(s) Supporting Document(s) Hemoglobin A1c/Hemoglobin.total in Blood 6.0 [facility] ([facility]) ID Date Data Source [id number] 11/21/2020 04:22:00 PM EDT [facility] Name Value Range Interpretation Code Description Data Mari rce(s) Supporting Document(s) Calcium [Mass/volume] in Serum or Plasma 9.3 [facility] ([facility]) Carbon dioxide, total [Moles/volume] in Serum or Plasma 30 [facility] ([facility]) Sodium 142 [facility] ([facility]) Chloride [Moles/volume] in Serum or Plasma 103 [facility] ([facility]) Potassium [Moles/volume] in Serum or Plasma 3.9 [facility] ([facility]) Glucose 127 74-106 [facility] ([facility]) Blood Urea Nitrogen 10 7-18 [facility] ([facility]) Creatinine 1.0 0.6-1.3 [facility] ([facility]) Glomerular filtration rate/1.73 sq M.pre dicted [Volume Rate/Area] in Serum or Plasma by Creatinine-based formula (MDRD) Laboratory test result [facility] ([facility]) ID Date Data Source [id number] 11/21/2020 09:11:00 AM EDT [facility] ([facility]) Name Value Range Interpretation Code Description Data Mari rce(s) Supporting Document(s) Cholesterol [Mass/volume] in Serum or Plasma 121 mg/dL 131-200 [facility] ([facility]) Triglyceride [Mass/volume] in Serum or Plasma 82 mg/dL 30-150 [facility] ([facility]) Cholesterol in LDL [Mass/volume] in Serum or Plasma by calcu lation 50 CALC 50-159 [facility] ([facility]) Cholesterol in HDL [Mass/volume] in Serum or Plasma 55 mg/dL 35-60 [facility] ([facility]) ID Date Data Source [id number] 11/21/2020 09:11:00 AM [facility] Name Value Range Interpretation Code Description Data Mari rce(s) Supporting Document(s) Microalbumin Urine 3.9 mg/L 1.3-20.0 [facility] ([facility]) Urine Creatinine 150.0 mg/dL 30.0-125.0 [facility] ([facility]) Microalb/Creat Ratio 2.6 ug/mg 0.0-30.0 [facility] ID Date Data Source [id number] 11/21/2020 09:11:00 AM EDT [facility] Name Value Range Interpretation Code Description Data Mari rce(s) Supporting Document(s) Glucose mean value [Mass/volume] in Blood Estimated fr om glycated hemoglobin 125 mg/dL 60-110 [facility] ([facility] ) Hemoglobin A1c/Hemoglobin.total in Blood 6.0 % [facility] Lab Result Notes: Pre-Diabetes 5.7 - 6.4 % Diabetes = or > 6.5% ID Date Data Source [id number] 11/21/2020 09:11:00 AM EDT [facility] Name Value Range Interpretation Code Description Data Mari rce(s) Supporting Document(s) Urea nitrogen [Mass/volume] in Serum or Plasma 10 mg/dL 7-18 [facility] ([facility]) Glucose [Mass/volume] in Serum or Plasma 127 mg/dL 74-99 [facility] ([facility]) 100-125 mg/dL PRE-DIABETES/FASTING >126 mg/dL DIABETES/FASTING Creatinine 1.0 mg/dL 0.6-1.3 [facility] ([facility]) Sodium [Moles/volume] in Serum or Plasma 142 meq/L 136-145 [facility] ([facility]) Chloride [Moles/volume] in Serum or Plasma 103 meq/L 98-107 [facility] ([facility]) Potassium [Moles/volume] in Serum or Plasma 3.9 meq/L 3.5-5.1 [facility] ([facility]) Glomerular filtration rate/1.73 sq M pre dicted among non-blacks [Volume Rate/Area] in Serum or Plasma by Creatinine-based formula (MDRD) Laboratory test result [facility] ([facility] Calcium [Mass/volume] in Serum or Plasma 9.3 mg/dL 8.5-10.1 [facility] ([facility]) Carbon dioxide, total [Moles/volume] in Serum or Plasma 30 meq/L 21 -32 [facility] Glomerular filtration rate/1.73 sq M pre dicted among blacks [Volume Rate/Area] in Serum or Plasma by Creatinine-based formula (MDRD) Laboratory test result [facility] ([facility]) <content>CHRONIC KIDNEY DISEASE STAGING PER NKF</content>
<content></content>
<content>STAGE I & II GFR >= 60 NORMAL TO MILDLY DECREASED</content>
<content>STAGE III GFR 30-59 MODERATELY DECREASED</content>
<content>STAGE IV GFR 15-29 SEVERELY DECREASED</content>
<content>STAGE V GFR <15 VERY LITTLE GFR LEFT</content>
<content>ESRD GFR <15 ON ASSISTANT TO THE CEO</content>
<content></content> ID Date Data Source [id number] 11/21/2020 09:11:00 AM EDT [facility]) Name Value Range Interpretation Code Description Data Mari rce(s) Supporting Document(s) Hemoglobin A1c/Hemoglobin.total in Blood Laboratory test result [facility]) ID Date Data Source [id number] 02/09/2020 02:51:00 PM EDT [facility] ([facility]) Name Value Range Interpretation Code Description Data Mari rce(s) Supporting Document(s) Erythrocyte sedimentation rate by Westergren method 30 mm/hr 0-20 [facility] ([facility]) C reactive protein [Mass/volume] in Serum or Plasma by High sensitivity method 7.12 mg/dL 0.00-0.30 [facility] ([facility] ) ID Date Data Source [id number] 02/09/2020 02:51:00 PM EDT [facility] Name Value Range Interpretation Code Description Data Mari rce(s) Supporting Document(s) Blood Urea Nitrogen 9 mg/dL 7-18 [facility] ([facility]) Creatinine For GFR 0.86 mg/dL 0.70-1.30 [facility] ([facility]) Glomerular Filtration Rate Laboratory test result [facility] ([facility] <content>Units are mL/min/1.73 m2</content>
<content></content>
<content>Chronic Kidney Disease Staging per NKF:</content>
<content></content>
<content>Stage I & II GFR >=60 Normal to Mildly Decreased</content>
<content>Stage III GFR 30- 59 Moderately Decreased</content>
<content>Stage IV GFR 15-29 Severely Decreased</content>
<content>Stage V GFR <15 Very Little GFR Left</content>
<content>ESRD GFR <15 on ASSISTANT TO THE CEO</content>
<content></content> Glucose, Fasting 107 mg/dL 70-100 [facility] ([facility]) Potassium Serum 3.9 meq/L 3.5-5.1 [facility] ([facility]) Chloride Level 105 meq/L 98-107 [facility] ([facility]) Sodium Level 138 meq/L 136-145 [facility] ([facility]) Carbon Dioxide Level 29 meq/L 21-32 [facility] ([facility]) Calcium Level 8.7 mg/dL 8.8-10.2 [facility] ([facility]) Anion Gap 4 meq/L 8-16 [facility] [facility]) ID Date Data Source [id number] 02/09/2020 02:51:00 PM EDT [facility] ([facility]) Name Value Range Interpretation Code Description Data Mari rce(s) Supporting Document(s) White Blood Count 10.4 10 4.0-10.0 [facility] ([facility]) Red Blood Count 5.32 10 4.30-6.10 [facility] ([facility]) Hematocrit 45.1 % 42.0-52.0 [facility] ([facility]) Hemoglobin 14.5 g/dL 13.5-17.5 [facility] ([facility]) Mean Corpuscular Volume 84.8 fl 80.0-96.0 [facility] ([facility]) Mean Corpuscular HGB Conc 32.2 g/dL 32.0-36.5 [facility] ([facility]) Mean Corpuscular Hemoglobin 27.3 pg 27.0-33.0 [facility] ([facility]) Lymph % 14.5 % 24.0-44.0 [facility] [facility]) Platelet Count, Automated 336 10 150-450 [facility] ([facility]) Red Cell Distribution Width 14.6 % 11.5-14.5 [facility] ([facility]) Neutrophils % 75.1 % 36.0-66.0 [facility] ([facility]) Eos % 1.6 % 0.0-3.0 [facility] [facility] Baso % 0.1 % 0.0-1.0 [facility] [facility] [place] % 8.4 % 0.0-5.0 [facility] ([place] [facility]) Neutrophils # 7.8 10 1.5-8.5 [facility] ([facility]) Lymph # 1.5 10 1.5-5.0 [facility] [facility] Immature Granulocyte % 0.3 % 0-3.0 [facility] ([facility]) Nucleated Red Blood Cell % 0.0 % 0-0 [facility] ([facility]) Eos # 0.2 10 0.0-0.5 [facility] [facility]) Baso # 0.0 10 0.0-0.2 [facility] [facility]) [place] # 0.9 10 0.0-0.8 [facility] [facility]) ID Date Data Source [id number] 02/09/2020 01:53:00 PM EDT [facility] Name Value Range Interpretation Code Description Data Mari rce(s) Supporting Document(s) Platelets 336 150-450 [facility] ([facility]) Red Blood Count 5.32 4.30-6.10 [facility] ([facility]) White Blood Count 10.4 4.0-10.0 [facility] ([facility]) Hematocrit 45.1 37.0-51.0 [facility] ([facility]io logy [facility]) Hemoglobin 14.5 13.5-17.5 [facility] ([facility]) ID Date Data Source [id number] 02/09/2020 01:53:00 PM EDT [facility] Name Value Range Interpretation Code Description Data Mari rce(s) Supporting Document(s) Calcium [Mass/volume] in Serum or Plasma 8.7 [facility] ([facility]) Sodium 138 [facility] Potassium [Moles/volume] in Serum or Plasma 3.9 [facility] ([facility]) Chloride [Moles/volume] in Serum or Plasma 105 [facility] ([facility]) Carbon dioxide, total [Moles/volume] in Serum or Plasma 29 [facility] ([facility]) Creatinine 0.86 0.70-1.30 [facility] ([facility]) Glucose 107 70-100 [facility] ([facility]) Blood Urea Nitrogen 9 7-18 [facility] ([facility]) Glomerular filtration rate/1.73 sq M.pre dicted [Volume Rate/Area] in Serum or Plasma by Creatinine-based formula (MDRD) Laboratory test result [facility] ([facility]) ID Date Data Source [id number] 02/08/2020 08:54:00 PM EDT [facility] ([facility]) Name Value Range Interpretation Code Description Data Mari rce(s) Supporting Document(s) C reactive protein [Mass/volume] in Serum or Plasma by High sensitivity method 5.17 mg/dL 0.00-0.30 [facility] ([facility] ) ID Date Data Source [id number] 02/08/2020 08:54:00 PM EDT [facility] ([facility]) Name Value Range Interpretation Code Description Data Mari rce(s) Supporting Document(s) White Blood Count 11.5 10 4.0-10.0 [facility] ([facility]) Red Blood Count 5.05 10 4.30-6.10 [facility] ([facility]) Hemoglobin 14.0 g/dL 13.5-17.5 [facility] ([facility]) Mean Corpuscular Volume 84.4 fl 80.0-96.0 [facility] ([facility]) Hematocrit 42.6 % 42.0-52.0 [facility] ([facility]) Mean Corpuscular HGB Conc 32.9 g/dL 32.0-36.5 [facility] ([facility]) Red Cell Distribution Width 14.6 % 11.5-14.5 [facility] ([facility]) Mean Corpuscular Hemoglobin 27.7 pg 27.0-33.0 [facility] ([facility]) Platelet Count, Automated 340 10 150-450 MEDE NT ([facility]) [place] % 8.3 % 0.0-5.0 [facility]) Lymph % 13.0 % 24.0-44.0 [facility] ([facility]) Neutrophils % 76.4 % 36.0-66.0 [facility] ([facility]) Eos % 1.7 % 0.0-3.0 [facility] ([facility]) Baso % 0.2 % 0.0-1.0 [facility] Immature Granulocyte % 0.4 % 0-3.0 [facility] ([facility]) Neutrophils # 8.8 10 1.5-8.5 [facility] ([facility]) Lymph # 1.5 10 1.5-5.0 [facility] ([facility]) Nucleated Red Blood Cell % 0.0 % 0-0 MED ENT ([facility]) [place] # 1.0 10 0.0-0.8 [facility] ([facility]) Baso # 0.0 10 0.0-0.2 [facility]) Eos # 0.2 10 0.0-0.5 [facility] ID Date Data Source [id number] 02/08/2020 10:36:00 AM EDT [facility] ([facility]) Name Value Range Interpretation Code Description Data Mari rce(s) Supporting Document(s) Blood Culture Laboratory test result [facility] ([facility]) No growth after 72 hours . All specimens observed for 5 days. Results final at that time. No growth after 48 hours . All specimens observed for 5 days. Results final at that time. No growth after 24 hours . All specimens observed for 5 days. Results final at that time. NO GROWTH AFTER 5 DAYS ID Date Data Source [id number] 02/08/2020 10:03:00 AM EDT [facility] ([facility]) Name Value Range Interpretation Code Description Data Mari rce(s) Supporting Document(s) Erythrocyte sedimentation rate by Westergren method 25 mm/hr 0-20 [facility] ([facility]) ID Date Data Source [id number] 02/08/2020 10:03:00 AM EDT [facility] ([facility]) Name Value Range Interpretation Code Description Data Mari rce(s) Supporting Document(s) White Blood Count 10.9 10 4.0-10.0 [facility] ([facility]) Hemoglobin 14.9 g/dL 13.5-17.5 [facility] ([facility]) Red Blood Count 5.41 10 4.30-6.10 [facility] ([facility]) Mean Corpuscular Volume 84.8 fl 80.0-96.0 [facility] ([facility]) Mean Corpuscular Hemoglobin 27.5 pg 27.0-33.0 ME DENT ([facility]) Hematocrit 45.9 % 42.0-52.0 [facility] ([facility]) Mean Corpuscular HGB Conc 32.5 g/dL 32.0-36.5 MEDE NT ([facility]) Red Cell Distribution Width 14.6 % 11.5-14.5 ME DENT ([facility]) Platelet Count, Automated 389 10 150-450 MEDE NT ([facility]) Nucleated Red Blood Cell % 0.0 % 0-0 [facility] ([facility]) ID Date Data Source [id number] 02/08/2020 10:03:00 AM EDT [facility]) Name Value Range Interpretation Code Description Data Mari rce(s) Supporting Document(s) C reactive protein [Mass/volume] in Serum or Plasma by High sensitivity method 2.96 mg/dL 0.00-0.30 [facility] ) ID Date Data Source [id number] 02/08/2020 10:03:00 AM EDT [facility] ([facility]) Name Value Range Interpretation Code Description Data Mari rce(s) Supporting Document(s) Glucose, Fasting 104 mg/dL 70-100 [facility] ([facility]) Creatinine For GFR 0.88 mg/dL 0.70-1.30 [facility] ([facility]) Glomerular Filtration Rate Laboratory test result [facility] ([facility]) <content>Units are mL/min/1.73 m2</content>
<content></content>
<content>Chronic Kidney Disease Staging per NKF:</content>
<content></content>
<content>Stage I & II GFR >=60 Normal to Mildly Decreased</content>
<content>Stage III GFR 30- 59 Moderately Decreased</content>
<content>Stage IV GFR 15-29 Severely Decreased</content>
<content>Stage V GFR <15 Very Little GFR Left</content>
<content>ESRD GFR <15 on ASSISTANT TO THE [employer]</content>
<content></content> Blood Urea Nitrogen 9 mg/dL 7-18 [facility] ([facility]) Sodium Level 139 meq/L 136-145 [facility] ([facility]) Chloride Level 105 meq/L 98-107 [facility] ([facility]) Potassium Serum 4.0 meq/L 3.5-5.1 [facility] ([facility]) Carbon Dioxide Level 28 meq/L 21-32 [facility] Calcium Level 9.0 mg/dL 8.8-10.2 [facility] ([facility]) Anion Gap 6 meq/L 8-16 [facility] ([facility]) ID Date Data Source [id number] 02/08/2020 10:02:00 AM EDT [facility] ([facility]) Name Value Range Interpretation Code Description Data Mari rce(s) Supporting Document(s) Blood Culture Laboratory test result [facility] ([facility]) No growth after 72 hours . All specimens observed for 5 days. Results final at that time. No growth after 48 hours . All specimens observed for 5 days. Results final at that time. No growth after 24 hours . All specimens observed for 5 days. Results final at that time. NO GROWTH AFTER 5 DAYS Procedure Social History Code Duration Value Status Description Data Source(s ) Smoking 01/25/2021 12:00:00 AM EDT Patient is a former smoker completed Patient is a former smoker [facility] ([facility]) Vital Signs ID Date Data Source UNK Name Value Range Interpretation Code Description Data Source(s) Heart rate 72 /min 72 /min [facility]) Regular Diastolic blood pressure 76 mm[Hg] 76 mm[Hg] [facility] ([facility]) sitting, large cuff Systolic blood pressure 136 mm[Hg] 136 mm[Hg] M EDENT ([facility]) sitting Body weight 319.00 [lb_av] 319.00 [lb_av] [facility] T ([facility]) Body height 72 [in_i] 72 [in_i] [facility]) 6'0" Body mass index (BMI) [Ratio] 43.3 kg/m2 43.3 k g/m2 [facility] ([facility]) Respiratory rate 16 /min 16 /min [facility] ( [facility]) Systolic blood pressure 132 mm[Hg] 132 mm[Hg] [facility] sitting, large cuff Diastolic blood pressure 80 mm[Hg] 80 mm[Hg] [facility] ([facility]) sitting Body height 72 [in_i] 72 [in_i] [facility] ([facility]) 6'0" Diastolic blood pressure 72 mm[Hg] 72 mm[Hg] [facility] ([facility]) RT Arm Heart rate 76 /min 76 /min [facility] ([facility]) Body mass index (BMI) [Ratio] 43.7 kg/m2 43.7 k g/m2 [facility] ([facility]) Body weight 322.00 [lb_av] 322.00 [lb_av] MED[facility] T ([facility]) Systolic blood pressure 128 mm[Hg] 128 mm[Hg] [facility] ([facility]) RT Arm Systolic blood pressure--sitting 138 mm[Hg] 138 mm[Hg] [facility] ([facility]) Body height 72 [in_i] 72 [in_i] [facility]) 6'0" Body weight 312.00 [lb_av] 312.00 [lb_av] [facility] T ([facility]) Body mass index (BMI) [Ratio] 42.3 kg/m2 42.3 k g/m2 [facility] ([facility]) Heart rate 88 /min 88 /min [facility] ([facility]) Respiratory rate 16 /min 16 /min [facility] ( [facility]) Diastolic blood pressure--sitting 82 mm[Hg] 82 mm[Hg] [facility] ([facility]) Oxygen saturation in Arterial blood by Pulse oximetry 97 % 97 % [facility] ([facility]) Body weight 307.00 [lb_av] 307.00 [lb_av] [facility] T ([facility]) Body temperature 98.2 [degF] 98.2 [degF] [facility] ([facility]) Body height 72 [in_i] 72 [in_i] [facility] ([facility]) 6'0" Body mass index (BMI) [Ratio] 41.6 kg/m2 41.6 k g/m2 [facility] ([facility])
[2021-03-22 23:17] LABS: BASO # 0.1 10^3/uL (0.0-0.2); BASO % 0.5 % (0.0-1.0); EOS # 0.3 10^3/uL (0.0-0.5); HEMATOCRIT 43.3 % (42.0-52.0); HEMOGLOBIN 14.1 g/dl (13.5-17.5); LYMPH # 2.6 10^3/uL (1.5-5.0); LYMPH % 25.4 % (24.0-44.0); MEAN CORPUSCULAR HEMOGLOBIN 27.9 pg (27.0-33.0); MEAN CORPUSCULAR HGB CONC 32.6 g/dl (32.0-36.5); MEAN CORPUSCULAR VOLUME 85.6 fl (80.0-96.0); NEUTROPHILS # 6.3 10^3/uL (1.5-8.5); NEUTROPHILS % 60.7 % (36.0-66.0); PLATELET COUNT, AUTOMATED 367 10^3/uL (150-450); RED BLOOD COUNT 5.06 10^6/uL (4.30-6.10); WHITE BLOOD COUNT 10.4 10^3/uL (4.0-10.0)
[2021-03-22 23:48] LABS: PROTHROMBIN TIME 13.6 SECONDS (12.7-14.5)
[2021-03-22 23:49] LABS: PARTIAL THROMBOPLASTIN TIME 33.8 SECONDS (25.9-37.0)
[2021-03-23 00:16] LABS: RSV AMPLIFICATION NEGATIVE (NEGATIVE)
[2021-03-23] MEDS ORDERED: HOME MED LIST COMPLETE! XX SCH (01:15)
[2021-03-23] MEDS ORDERED: PROAAER10 INH (01:15)
[2021-03-23] MEDS ORDERED: ASPI325T57 PO (01:15)
[2021-03-23] MEDS ORDERED: ATOR40TA75 PO (01:15)
[2021-03-23 01:17] LABS: ALBUMIN 3.6 GM/DL (3.2-5.2); BILIRUBIN,DIRECT 0.2 MG/DL (0.0-0.2); BILIRUBIN,TOTAL 0.7 MG/DL (0.2-1.0); THYROID STIMULATING HORMONE 3.71 uIU/ML (0.358-3.740); TOTAL PROTEIN 8.1 GM/DL (6.4-8.2)
[2021-03-23 01:18] LABS: FREE T4 1.18 NG/DL (0.76-1.46)
--- NOTE | 2021-03-23 01:43 | REPVR ---
PROCEDURE INFORMATION: Exam: XR Chest Exam date and time: 03/22/2021 11:23 PM Age: 60 years old Clinical indication: Other: Cp; Additional info: Chest pain TECHNIQUE: Imaging protocol: XR of the chest. Views: 1 view. COMPARISON: CR PORTABLE CHEST X-RAY 04/27/2019 9:51 PM FINDINGS: Lungs: Clear. No consolidation. Pleural spaces: No pleural effusion. No pneumothorax. Heart/Mediastinum: Unremarkable. No cardiomegaly. Bones/joints: Unremarkable. IMPRESSION: No acute findings. Electronically signed by: Terry Mckenzie On 03/23/2021 01:42:58 AM
--- NOTE | 2021-03-23 19:00 | ECGEPIP ---
[facility] - ED Test Date: 2021-03-22 Pat Name: JAY JAY ZUNIGA Department: Room: - Gender: Male [employer]: SHYAM : 1960 Requested By: Maddi Hardy Order Number: [id number] Reading MD: Regina Blake Measurements Intervals [place] Rate: 72 P: 65 [place]: 208 QRS: 62 QRSD: 88 T: 37 QT: 396 QTc: 433 Interpretive Statements Sinus rhythm with premature supraventricular complexes NSTTW abnormalities similar 04/27/19 Electronically Signed on 03-23-2021 19:00:16 EDT by Regina Blake
== END 2021-03-23 04:22 | disposition left against medical advice (07) ==
LOC: M ED 22:14
DX: R07.9 Chest pain, unspecified (principal); I48.91 Unspecified atrial fibrillation; I10 Essential (primary) hypertension; E11.9 Type 2 diabetes mellitus without complications; Z79.51 Long term (current) use of inhaled steroids; Z79.899 Other long term (current) drug therapy; G47.33 Obstructive sleep apnea (adult) (pediatric); Z53.20 Procedure and treatment not carried out because of patient's decision for unspecified reasons; Z79.01 Long term (current) use of anticoagulants; Z88.0 Allergy status to penicillin; Z91.041 Radiographic dye allergy status

== ENCOUNTER 2021-04-29 17:09 | Emergency (ER) | payer MEDICARE ==
[~2021-04-29] VITALS: Ht 177.8 cm; Wt 140.9 kg
[~2021-04-29 17:09] MED LIST changes: +ASPI325T57 PO; +ATOR40TA75 PO; +POTA-149 PO; -POTA10TA16 PO
[2021-04-29 18:53] LABS: MAGNESIUM LEVEL 1.8 MG/DL (1.8-2.4); THYROID STIMULATING HORMONE 2.53 uIU/ML (0.358-3.740)
[2021-04-29 19:15] VITALS: BP 148/66
== END 2021-04-29 19:35 | disposition home or self-care (01) ==
LOC: EDBD 17:09 → M ED 17:09
DX: R53.1 Weakness (principal); Z63.79 Other stressful life events affecting family and household; I48.91 Unspecified atrial fibrillation; I10 Essential (primary) hypertension; E78.5 Hyperlipidemia, unspecified; G47.33 Obstructive sleep apnea (adult) (pediatric); F43.10 Post-traumatic stress disorder, unspecified; F32.A Depression, unspecified; Z79.01 Long term (current) use of anticoagulants; Z79.899 Other long term (current) drug therapy

== ENCOUNTER 2021-09-02 19:18 | Emergency (ER) | payer MEDICARE ==
[~2021-09-02] VITALS: Ht 182.9 cm; Wt 136.3 kg
[2021-09-02] MEDS ORDERED: NITROGLYCERIN 0.4 MG SUBL TABLET SL STA (19:48)
[2021-09-02] MEDS ORDERED: ASPIRIN 81 MG CHEW TABLET PO ONE (19:50)
[2021-09-02 19:51] LABS: BASO # 0.1 10^3/uL (0.0-0.2); BASO % 0.5 % (0.0-1.0); EOS # 0.2 10^3/uL (0.0-0.5); EOS % 1.9 % (0.0-3.0); HEMATOCRIT 41.9 % (42.0-52.0); HEMOGLOBIN 13.5 g/dl (13.5-17.5); LYMPH # 1.9 10^3/uL (1.5-5.0); LYMPH % 19.9 % (24.0-44.0); MEAN CORPUSCULAR HEMOGLOBIN 27.5 pg (27.0-33.0); MEAN CORPUSCULAR HGB CONC 32.2 g/dl (32.0-36.5); MEAN CORPUSCULAR VOLUME 85.3 fl (80.0-96.0); MONO # 0.9 10^3/uL (0.0-0.8); MONO % 9.6 % (2.0-8.0); NEUTROPHILS # 6.4 10^3/uL (1.5-8.5); NEUTROPHILS % 67.6 % (36.0-66.0); PLATELET COUNT, AUTOMATED 340 10^3/uL (150-450); RED BLOOD COUNT 4.91 10^6/uL (4.30-6.10); WHITE BLOOD COUNT 9.5 10^3/uL (4.0-10.0)
[2021-09-02 19:59] VITALS: BP 149/67
[2021-09-02 20:12] LABS: INR 1.05; PROTHROMBIN TIME 14.1 SECONDS (12.7-14.5)
[2021-09-02 20:16] LABS: CK-MB VALUE MASS < 1.0 NG/ML (<3.6); CPK CREATINE PHOSPHOKINASE 115 U/L (39-308); MB/CK RELATIVE INDEX 0.87 (< OR =4)
[2021-09-02 20:22] LABS: ALBUMIN 3.5 GM/DL (3.2-5.2); ALT/SGPT 22 U/L (12-78); BILIRUBIN,DIRECT 0.2 MG/DL (0.0-0.2); BILIRUBIN,TOTAL 0.7 MG/DL (0.2-1.0); BLOOD UREA NITROGEN 10 MG/DL (7-18); CARBON DIOXIDE LEVEL 31 MEQ/L (21-32); CHLORIDE LEVEL 104 MEQ/L (98-107); CREATININE FOR GFR 0.92 MG/DL (0.70-1.30); GLOMERULAR FILTRATION RATE > 60.0 (>49); GLUCOSE, FASTING 84 MG/DL (70-100); LIPASE 108 U/L (73-393); NT-PRO BNP 47 PG/ML (<125); POTASSIUM SERUM 3.9 MEQ/L (3.5-5.1); SODIUM LEVEL 141 MEQ/L (136-145); TOTAL PROTEIN 7.4 GM/DL (6.4-8.2)
[2021-09-02 21:29] LABS: CK-MB VALUE MASS < 1.0 NG/ML (<3.6); CPK CREATINE PHOSPHOKINASE 97 U/L (39-308); MB/CK RELATIVE INDEX 1.03 (< OR =4)
[2021-09-02] MEDS ORDERED: NS 500 ML IV ONE (22:50)
[2021-09-02 22:53] VITALS: BP 118/60
== END 2021-09-02 22:56 | disposition home or self-care (01) ==
LOC: M ED 19:18
DX: R07.89 Other chest pain (principal); R11.0 Nausea; R94.31 Abnormal electrocardiogram [ECG] [EKG]; I48.91 Unspecified atrial fibrillation; I51.7 Cardiomegaly; E11.9 Type 2 diabetes mellitus without complications; E78.5 Hyperlipidemia, unspecified; F43.10 Post-traumatic stress disorder, unspecified; Z88.0 Allergy status to penicillin; Z91.041 Radiographic dye allergy status; Z79.01 Long term (current) use of anticoagulants; Z79.899 Other long term (current) drug therapy

== ENCOUNTER → 2021-09-26 | Outpatient (CLI) | payer MEDICARE ==
[2021-09-26 11:54] LABS: ALT/SGPT 18 U/L (12-78); BLOOD UREA NITROGEN 12 MG/DL (7-18); CALCIUM LEVEL 9.2 MG/DL (8.8-10.2); CARBON DIOXIDE LEVEL 32 MEQ/L (21-32); CHLORIDE LEVEL 107 MEQ/L (98-107); CREATININE FOR GFR 0.96 MG/DL (0.70-1.30); GLOMERULAR FILTRATION RATE > 60.0 (>49); GLUCOSE, FASTING 87 MG/DL (70-100); POTASSIUM SERUM 4.4 MEQ/L (3.5-5.1); SODIUM LEVEL 142 MEQ/L (136-145)
[2021-09-26 11:55] LABS: ALBUMIN 3.2 GM/DL (3.2-5.2); BILIRUBIN,TOTAL 0.9 MG/DL (0.2-1.0); TOTAL PROTEIN 6.8 GM/DL (6.4-8.2)
[2021-09-26 12:15] LABS: HEPATITIS B SURFACE ANTIGEN NEGATIVE (NEGATIVE)
[2021-09-26 12:42] LABS: HEPATITIS C VIRUS ABY INDEX 0.1 INDEX (<0.8)
[2021-09-26 12:43] LABS: HEPATITIS B CORE ANTIBODY IGM NEGATIVE (NEGATIVE)
== END ==
LOC: M LAB 10:25
PROVIDERS: ATTEND Physician Assistant
DX: L43.9 Lichen planus, unspecified (principal)

== ENCOUNTER 2021-10-06 23:42 | Emergency (ER) | payer MEDICARE ==
[~2021-10-06] VITALS: Ht 182.9 cm; Wt 136.0 kg
[2021-10-07 01:33] LABS: BASO % 0.4 % (0.0-1.0); EOS # 0.2 10^3/uL (0.0-0.5); EOS % 2.1 % (0.0-3.0); HEMATOCRIT 40.6 % (42.0-52.0); HEMOGLOBIN 12.9 g/dl (13.5-17.5); LYMPH # 1.6 10^3/uL (1.5-5.0); LYMPH % 17.8 % (24.0-44.0); MEAN CORPUSCULAR HEMOGLOBIN 27.3 pg (27.0-33.0); MEAN CORPUSCULAR HGB CONC 31.8 g/dl (32.0-36.5); MONO # 0.9 10^3/uL (0.0-0.8); MONO % 9.8 % (2.0-8.0); NEUTROPHILS # 6.3 10^3/uL (1.5-8.5); NEUTROPHILS % 69.5 % (36.0-66.0); PLATELET COUNT, AUTOMATED 340 10^3/uL (150-450); RED BLOOD COUNT 4.72 10^6/uL (4.30-6.10)
[2021-10-07 01:55] LABS: CK-MB VALUE MASS < 1.0 NG/ML (<3.6); CPK CREATINE PHOSPHOKINASE 109 U/L (39-308); MB/CK RELATIVE INDEX 0.92 (< OR =4)
[2021-10-07 02:08] LABS: ALBUMIN 3.1 GM/DL (3.2-5.2); ALT/SGPT 18 U/L (12-78); BILIRUBIN,DIRECT 0.2 MG/DL (0.0-0.2); BILIRUBIN,TOTAL 0.5 MG/DL (0.2-1.0); BLOOD UREA NITROGEN 10 MG/DL (7-18); CALCIUM LEVEL 9.1 MG/DL (8.8-10.2); CARBON DIOXIDE LEVEL 33 MEQ/L (21-32); CHLORIDE LEVEL 105 MEQ/L (98-107); CREATININE FOR GFR 0.96 MG/DL (0.70-1.30); GLOMERULAR FILTRATION RATE > 60.0 (>49); GLUCOSE, FASTING 112 MG/DL (70-100); LIPASE 146 U/L (73-393); NT-PRO BNP 36 PG/ML (<125); SODIUM LEVEL 140 MEQ/L (136-145); TOTAL PROTEIN 6.6 GM/DL (6.4-8.2)
[2021-10-07] MEDS ORDERED: NITROGLYCERIN 0.4 MG SUBL TABLET SL STA (02:11)
[2021-10-07 02:42] VITALS: BP 172/82
[2021-10-07 03:18] VITALS: BP 140/82
[2021-10-07] MEDS ORDERED: NITR0.4S14 SL ×2 (03:30→03:53)
== END 2021-10-07 04:07 | disposition home or self-care (01) ==
LOC: M ED 23:42
DX: I20.9 Angina pectoris, unspecified (principal); R94.31 Abnormal electrocardiogram [ECG] [EKG]; I10 Essential (primary) hypertension; E11.9 Type 2 diabetes mellitus without complications; E78.5 Hyperlipidemia, unspecified; G43.909 Migraine, unspecified, not intractable, without status migrainosus; Z86.79 Personal history of other diseases of the circulatory system; Z91.041 Radiographic dye allergy status; Z88.0 Allergy status to penicillin; Z79.51 Long term (current) use of inhaled steroids; Z79.899 Other long term (current) drug therapy; Z79.4 Long term (current) use of insulin